=== PATIENT | female | born 1970 | race Caucasian/White ===

== ENCOUNTER 2022-06-05 15:09 | Inpatient (IN) ==
[2022-06-05] MEDS ORDERED: DUONEB NEB STA ×2 (15:18→15:55)
[2022-06-05] MEDS ORDERED: SOLU-MEDROL 125 MG IM STA (15:18)
[2022-06-05] MEDS ORDERED: DUONEB NEB ONE (15:21)
--- NOTE | 2022-06-05 15:43 | DI ---
EXAM: CHEST X-RAY ONE VIEW. HISTORY: Dyspnea. COMPARISON: 03/18/2022 chest x-ray. FINDINGS: There are stable linear and patchy markings in the right mid to lower lung with blunting o f both costophrenic angles, right greater than left. The cardiac silhouette is enlarged. There is mild pulmonary edema and no pneumothorax. No change in the right-sided port or osseous structures. IMPRESSION: Stable right mid to lower lung atelectasis and/or pneumonia with small bilateral pleural effusions, right greater than left. Stable cardiomegaly and interstitial edema.
--- NOTE | 2022-06-05 15:43 | ED.PDOC ---
General ED Provider: Dr. MILADY DAVEY MD Chief Complaint: Shortness of Air Stated Complaint: Patient presents with increasing dyspnea and wheezing over the past 2 days. She is on home oxygen. Patient has a chronic cough that is nonproductive. She did have fever to 100.2 this morning. Patient does have chronic chest pain that is related to her cough. She is on home oxygen at 3L/min [place]. Patient has noted increasing peripheral edema and also has orthopnea. Time Seen by Provider: 06/05/22 15:42 Mode of Arrival: Wheelchair Information Source: Patient Primary Care Provider: ODALIS BECKFORD MD Nursing and Triage Documentation Reviewed and Agree: Yes Does patient meet sepsis criteria?: No System Inflammatory Response Syndrome: Not Applicable Sepsis Protocol: For patient's 13 years and over: Temp is 96.8 and below OR 101 and greater Pulse >90 BPM Resp >20/minute Acutely Altered Mental Status Are patient's symptoms suggestive of a new infection, such as: -Pneumonia -Skin, Soft Tissue -Endocarditis -UTI -Bone, Joint Infection -Implantable Device -Acute Abdominal Infection -Wound Infection -Meningitis -Blood Stream Catheter Infection -Unknown Review of Systems Review Of Systems Constitutional: Reports Fever Eyes: Reports No symptoms Ears, Nose, Mouth, Throat: Reports No symptoms Respiratory: Reports Cough, Orthopnea, Short of air and Wheezing Cardiac: Reports Chest pain and Edema GI: Reports No symptoms : Reports No symptoms Musculoskeletal: Reports No symptoms Skin: Reports No symptoms Neurological: Reports No symptoms Endocrine: Reports No symptoms Hematologic/Lymphatic: Reports No symptoms All Other Systems: Reviewed and Negative [facility] Medical History (Updated 06/05/22 @ 17:38 by MILADY DAVEY MD) Arthritis, rheumatoid Bone marrow disease COPD exacerbation Diastolic heart failure Encounter for insertion of venous access port Enlarged liver History of intussusception Respiratory distress Sarcoidosis Spleen enlarged Uveitic glaucoma Family History Mother Hypertension Diabetes FATHER Cancer Social History Smoking and tobacco status: Former smoker Tobacco: How many years used: 37 Quit status: not considering quitting Second hand smoke exposure: No Alcohol intake: never Counseling given: No Counseling provided: none Substance use type: does not use Counseling given: No Counseling provided: none Janice/judaism: NONE Special janice needs: No Agree to transfusion: Yes Adopted: No Caregiver/support person: No Foster care: No Household members: spouse and family Housing: house Marital status: M Lives independently: Yes Daycare: no daycare Number of children: 5 Number of grandchildren: 7 Highest education level completed: 10th grade Financial difficulty paying for basics: hard service: No assisted: No Current occupational status: disabled Current occupational exposures/hazards: No Pets and animals: Yes (cats, dog) History of recent travel: No Do you think of yourself as: straight/heterosexual Current gender identity: female Seatbelt use: always Drives intoxicated or rides with intoxicated 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 ) Ill-appearing: Moderate Pain Distress: None Eyes: Reports Conjunctiva clear ENT: Reports Nose normal and Oropharynx normal Neck: Supple Respiratory: Reports Airway patent, Breath sounds equal, Breath sounds diminished and Wheezes (bilateral throughout) Cardiovascular: Reports RRR, No rub, No murmur and Other (Moderate pitting edema bilaterally to the knees.) GI/: Reports Soft, Nontender, No masses, Bowel sounds normal and No Organomegaly Musculoskeletal: Reports ROM intact Skin: Reports Warm, Dry and Normal color Neurological: Reports Alert and Oriented Psychiatric: Reports Affect appropriate and Mood appropriate Interpretation Radiology Interpretation Radiology Interpretation By: Radiologist Exam Interpreted: Portable CXR (mild pulmonary edema, small bilateral pleural effusions, right sided infiltrate/atelectasis stable from 03/18/22) EKG Interpretation Time of EKG #1: 15:34 Rate: Normal Rhythm: Sinus Ectopy: None [place]: Right ST Segment: Normal Interpretation: normal sinus rhythm Critical Care Note Critical Care Note Total Critical Care Time (mins): 0 Course Course Hematology/Chemistry: 06/05/22 16:12 06/05/22 16:12 Orders, Labs, Meds: Lab Review 06/05/22 06/05/22 06/05/22 16:12 16:12 16:12 WBC 3.02 L RBC 3.14 L Hgb 8.6 L Hct 29.5 L MCV 93.9 MCH 27.4 MCHC 29.2 L RDW Coeff of Georgina 18.4 H Plt Count 145 Immature Gran % (Auto) 0.0 Neut % (Auto) 80.2 H Lymph % (Auto) 8.9 L [place] % (Auto) 8.9 Eos % (Auto) 1.7 Baso % (Auto) 0.3 Neut # (Auto) 2.4 Lymph # (Auto) 0.3 L [place] # (Auto) 0.3 L Eos # (Auto) 0.1 Baso # (Auto) 0.0 Immature Gran # (Auto) 0.0 Hypochromasia 3+ Anisocytosis 3+ Microcytosis 2+ Stomatocytes 1+ Sodium 135.9 Potassium 3.56 Chloride 90.1 L Carbon Dioxide 48.0 H* Anion Gap 1.36 BUN 18.5 H Creatinine 1.09 Estimated GFR (MDRD) 53.00 BUN/Creatinine Ratio 16.97 Glucose 94.5 Calcium 8.83 Total Bilirubin 0.46 AST 17.6 ALT 6.2 Alkaline Phosphatase 71.6 Troponin I < 0.012 NT-Pro-B Natriuret Pep 1090 H Total Protein 6.63 Albumin 3.80 Globulin 2.83 Albumin/Globulin Ratio 1.34 Influ A Molecular Assay Influ B Molecular Assay SARS CoV-2 RNA Rapid PAUL 06/05/22 06/05/22 16:45 16:45 WBC RBC Hgb Hct MCV MCH MCHC RDW Coeff of Georgina Plt Count Immature Gran % (Auto) Neut % (Auto) Lymph % (Auto) [place] % (Auto) Eos % (Auto) Baso % (Auto) Neut # (Auto) Lymph # (Auto) [place] # (Auto) Eos # (Auto) Baso # (Auto) Immature Gran # (Auto) Hypochromasia Anisocytosis Microcytosis Stomatocytes Sodium Potassium Chloride Carbon Dioxide Anion Gap BUN Creatinine Estimated GFR (MDRD) BUN/Creatinine Ratio Glucose Calcium Total Bilirubin AST ALT Alkaline Phosphatase Troponin I NT-Pro-B Natriuret Pep Total Protein Albumin Globulin Albumin/Globulin Ratio Influ A Molecular Assay Negative by naat Influ B Molecular Assay Negative by naat SARS CoV-2 RNA Rapid PAUL Negative Orders Category Date Time Status EKG-(ED ONLY) Stat CARDIO 06/05/22 15:34 Completed NEBULIZER TREATMENT Stat CARDIO 06/05/22 15:18 Completed NEBULIZER TREATMENT Stat CARDIO 06/05/22 15:55 Completed CBC W/ AUTO DIFF Stat LAB 06/05/22 16:12 Completed CMP [COMPREHENSIVE METABOLIC PANEL] Stat LAB 06/05/22 16:12 Completed COVID [SARS COV-2 RNA RAPID PAUL] Stat LAB 06/05/22 16:45 Completed FLU A/B MOLECULAR Stat LAB 06/05/22 16:45 Completed NT-PROBNP(ED) Stat LAB 06/05/22 16:12 Completed RBC MORPHOLOGY Stat LAB 06/05/22 16:12 Completed TROPONIN I Stat LAB 06/05/22 16:12 Completed Furosemide [Lasix] MEDS 06/05/22 16:00 Discontinued 60 mg IVP ONCE STA Ipratropium/Albuterol Neb [Duoneb] MEDS 06/05/22 15:21 Discontinued 3 ml NEB .STK-MED ONE Ipratropium/Albuterol Neb [Duoneb] MEDS 06/05/22 15:18 Discontinued 3 ml NEB ONCE STA Ipratropium/Albuterol Neb [Duoneb] MEDS 06/05/22 15:55 Discontinued 3 ml NEB ONCE STA Ketorolac Tromethamine [Toradol] MEDS 06/05/22 15:55 Discontinued 15 mg IVP ONCE STA Methylprednisolone Sod Succ/Pf [Solu-Medrol 125 mg] MEDS 06/05/22 16:31 Discontinued 125 mg IVP ONCE STA Morphine Sulfate [Morphine 4 mg/ml Syringe] MEDS 06/05/22 16:40 Discontinued 4 mg IVP ONCE STA CXR [CHEST, 1V AP ONLY] Stat RADS 06/05/22 15:18 Completed Medications Discontinued Medications Generic Name Dose Route Start Last Admin Trade Name Freq PRN Reason Stop Dose Admin Albuterol/Ipratropium 3 ml 06/05/22 15:18 06/05/22 15:30 Ipratropium/Albuterol Vial.Neb NEB 06/05/22 15:19 3 ml ONCE STA Administration Albuterol/Ipratropium 3 ml 06/05/22 15:55 06/05/22 16:34 Ipratropium/Albuterol Vial.Neb NEB 06/05/22 15:56 3 ml ONCE STA Administration Furosemide 60 mg 06/05/22 16:00 06/05/22 16:50 Furosemide Inj 100 Mg/10 Ml Vial IVP 06/05/22 16:01 60 mg ONCE STA Administration Ketorolac Tromethamine 15 mg 06/05/22 15:55 06/05/22 17:13 Ketorolac Tromethamine 15 Mg/Ml Vial IVP 06/05/22 15:56 Not Given ONCE STA Methylprednisolone Sodium Succinate 125 mg 06/05/22 16:31 06/05/22 16:52 Methylprednisolone Sod Succ/Pf 125 Mg/2 Ml Vial IVP 06/05/22 16:32 125 mg ONCE STA Administration Morphine Sulfate 4 mg 06/05/22 16:40 06/05/22 16:45 Morphine Sulfate 4 Mg/Ml Syringe IVP 06/05/22 16:41 4 mg ONCE STA Administration Vital Signs: Temp Pulse Resp BP Pulse Ox 06/05/22 15:17 97.8 F 91 32 H 151/88 H 93 L Discharge Plan Discharge Patient Disposition: ADMITTED INPATIENT Discharge Problem: Acute exacerbation of congestive heart failure, Chronic respiratory failure with hypoxia, on home oxygen therapy Did you review [place]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
[2022-06-05] MEDS ORDERED: TORADOL IVP STA (15:55)
[2022-06-05] MEDS ORDERED: LASIX IVP STA (16:00)
[2022-06-05 16:29] LABS: ALANINE AMINOTRANSFERASE 6.2 U/L (0-35); ALKALINE PHOSPHATASE 71.6 U/L (38-126); ASPARTATE AMINO TRANSFERASE 17.6 U/L (14-36); BILIRUBIN,TOTAL 0.46 mg/dL (0.2-1.3); BLOOD UREA NITROGEN 18.5 mg/dL (7-17); CALCIUM 8.83 mg/dL (8.4-10.2); CHLORIDE 90.1 mmol/L (98-107); CREATININE 1.09 mg/dL (0.60-1.30); GLUCOSE 94.5 mg/dL (74-106); POTASSIUM 3.56 mmol/L (3.5-5.1); SODIUM 135.9 mmol/L (134.5-145); TOTAL PROTEIN 6.63 g/dL (6.3-8.2)
[2022-06-05] MEDS ORDERED: SOLU-MEDROL 125 MG IVP STA (16:31)
[2022-06-05] MEDS ORDERED: MORPHINE 4 MG/ML SYRINGE IVP STA (16:40)
[2022-06-05 16:43] LABS: TROPONIN I < 0.012 ng/ml (0.0000-0.120)
[2022-06-05 17:03] LABS: MOLECULAR FLU A NEGATIVE BY NAAT (NEGATIVE); MOLECULAR FLU B NEGATIVE BY NAAT (NEGATIVE)
[2022-06-05 17:11] LABS: BASOPHILS % (AUTO) 0.3 % (0.0-3.0); EOSINOPHILS # (AUTO) 0.1 K/ul (0.0-0.7); EOSINOPHILS % (AUTO) 1.7 % (0.0-7.0); HEMATOCRIT 29.5 % (37.0-47.0); HEMOGLOBIN 8.6 g/dl (12.0-16.0); LYMPHOCYTES # (AUTO) 0.3 K/uL (0.60-3.4); LYMPHOCYTES % (AUTO) 8.9 (10.0-50.0); MEAN CORPUSCULAR HEMOGLOBIN 27.4 pg (27.0-31.0); MEAN CORPUSCULAR HGB CONC 29.2 (31.8-35.4); MEAN CORPUSCULAR VOLUME 93.9 fl (81.0-99.0); MONOCYTES # (AUTO) 0.3 K/uL (0.4-2.0); MONOCYTES % (AUTO) 8.9 (0-10); NEUTROPHILS # (AUTO) 2.4 K/ul (2.0-6.9); NEUTROPHILS % (AUTO) 80.2 % (42.2-75.2); PLATELET COUNT 145 10^3/uL (140-440); RDW COEFFICIENT OF VARIATION 18.4 % (11.6-14.8); RED BLOOD COUNT 3.14 10^6/ul (4.20-5.40); WHITE BLOOD COUNT 3.02 K/ul (4.6-10.2)
[2022-06-05 17:20] LABS: SARS COV-2 RNA RAPID NAAT NEGATIVE (NEGATIVE)
[2022-06-05 17:21] LABS: ANISOCYTOSIS 3+ (NOT PRESENT); HYPOCHROMASIA 3+ (NOT PRESENT)
[2022-06-05 17:22] LABS: MICROCYTOSIS 2+ (NOT PRESENT); STOMATOCYTES 1+ (NOT PRESENT)
[2022-06-05] MEDS ORDERED: PERCOCET 5-325 PO PRN (17:43)
[2022-06-05] MEDS ORDERED: SOLU-MEDROL 125 MG IVP SCH (18:00)
[2022-06-05] MEDS ORDERED: SEROQUEL PO SCH (18:00)
--- NOTE | 2022-06-05 18:04 | PCM ---
Chief Complaint Chief Complaint: dyspnea History of Present Illness History of Present Illness: Patient presented with worsening dyspnea for 2 days. She also complained of fever to 100.2, cough, peripheral edema, orthopnea, wheezing. She was found to have acute exacerbation of CHF and chronic respiratory failure with hypoxia. She is on home oxygen at 2L/min [place]. Review of Systems Constitutional: Reports Fever Eyes: Reports No symptoms Ears: Reports No symptoms Nose: Reports No symptoms Throat: Reports No symptoms Mouth: Reports No symptoms Respiratory: Reports Cough, Shortness of air and Wheeze Cardiovascular: Reports Orthopnea and Edema Gastrointestinal: Reports No symptoms Genitourinary: Reports No symptoms Neurological: Reports No symptoms Musculoskeletal: Reports No symptoms Skin: Reports No symptoms Immunology: Reports No symptoms Hematology: Reports No symptoms Endocrine: Reports No symptoms Psychiatric: Reports No symptoms Habits: Reports Tobacco use Allergies Allergies Allergy/AdvReac Type Severity Reaction Status Date / Time Penicillins AdvReac Rash Verified 06/05/22 15:36 prednisone AdvReac Dizziness Verified 06/05/22 15:36 Sulfa (Sulfonamide AdvReac Rash Verified 06/05/22 15:36 Antibiotics) [facility] Medical History (Updated 06/05/22 @ 17:38 by MILADY DAVEY MD) Arthritis, rheumatoid Bone marrow disease COPD exacerbation Diastolic heart failure Encounter for insertion of venous access port Enlarged liver History of intussusception Respiratory distress Sarcoidosis Spleen enlarged Uveitic glaucoma Surgical History Delivery by section H/O: hysterectomy History of esophageal hernia repair History of inguinal hernia repair Hx of cholecystectomy S/P repair of ligament of ankle Family History Mother Hypertension Diabetes FATHER Cancer Social History Smoking and tobacco status: Former smoker Tobacco: How many years used: 37 Quit status: not considering quitting Second hand smoke exposure: No Alcohol intake: never Counseling given: No Counseling provided: none Substance use type: does not use Counseling given: No Counseling provided: none Janice/anglican: NONE Special janice needs: No Agree to transfusion: Yes Adopted: No Caregiver/support person: No Foster care: No Household members: spouse and family Housing: house Marital status: M Lives independently: Yes Daycare: no daycare Number of children: 5 Number of grandchildren: 7 Highest education level completed: 10th grade Financial difficulty paying for basics: hard service: No custodial: No Current occupational status: disabled Current occupational exposures/hazards: No Pets and animals: Yes (cats, dog) History of recent travel: No Do you think of yourself as: straight/heterosexual Current gender identity: female Seatbelt use: always Drives intoxicated or rides with intoxicated tank 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 PO QDAY EMRE Duloxetine HCl 0 mg 06/05/22 18:00 Duloxetine Hcl 30 Mg Capsule. PO .COMPLEX EMRE Metoprolol Succinate 25 mg 06/05/22 18:00 Metoprolol Succinate 25 Mg Tab.Er.24h PO QDAY EMRE Oxycodone/Acetaminophen 1 tab 06/05/22 17:43 Oxycodone/Acetaminophen 5/325 Mg Tablet PO Q4HR PRN MODERATE PAIN Pantoprazole Sodium 40 mg 06/05/22 18:00 Pantoprazole Sodium 40 Mg Tablet. PO QDAY EMRE Quetiapine Fumarate 600 mg 06/05/22 18:00 Quetiapine Fumarate 100 Mg Tablet PO DAILY [facility] Body Composition Height: 5 ft 2 in Weight: 69.4 kg Body Mass Index (BMI): 28.0 Vital Signs Temperature: 97.8 F Pulse Rate: 91 Respiratory Rate: 32 Blood Pressure: 151/88 O2 Sat by Pulse Oximetry: 93 Physical Examination Appearance: Reports Ill-appearing, Obese and Other (Patient is both acutely and chronically ill appearing. She is moderately tachypneic. ) Ill-appearing: Moderate Pain Distress: Mild Eyes: Reports Conjunctiva clear ENT: Reports Nose normal and Oropharynx normal Neck: Supple Respiratory: Reports Airway patent, Breath sounds equal, Breath sounds diminished and Wheezes Cardiovascular: Reports RRR, No rub, No murmur and Other (Moderate pitting edema bilateral LEs) GI/: Reports Soft, Nontender, No masses and Bowel sounds normal Musculoskeletal: Reports ROM intact Skin: Reports Warm, Dry and Normal color Neurological: Reports Alert and Oriented Psychiatric: Reports Affect appropriate, Mood appropriate and Anxious Lab/Tests/Diagnostic Imaging Lab/Tests/Diagnostic Imaging: Lab Review 06/05/22 06/05/22 06/05/22 16:12 16:12 16:12 WBC 3.02 L RBC 3.14 L Hgb 8.6 L Hct 29.5 L MCV 93.9 MCH 27.4 MCHC 29.2 L RDW Coeff of Georgina 18.4 H Plt Count 145 Immature Gran % (Auto) 0.0 Neut % (Auto) 80.2 H Lymph % (Auto) 8.9 L [place] % (Auto) 8.9 Eos % (Auto) 1.7 Baso % (Auto) 0.3 Neut # (Auto) 2.4 Lymph # (Auto) 0.3 L [place] # (Auto) 0.3 L Eos # (Auto) 0.1 Baso # (Auto) 0.0 Immature Gran # (Auto) 0.0 Hypochromasia 3+ Anisocytosis 3+ Microcytosis 2+ Stomatocytes 1+ Sodium 135.9 Potassium 3.56 Chloride 90.1 L Carbon Dioxide 48.0 H* Anion Gap 1.36 BUN 18.5 H Creatinine 1.09 Estimated GFR (MDRD) 53.00 BUN/Creatinine Ratio 16.97 Glucose 94.5 Calcium 8.83 Total Bilirubin 0.46 AST 17.6 ALT 6.2 Alkaline Phosphatase 71.6 Troponin I < 0.012 NT-Pro-B Natriuret Pep 1090 H Total Protein 6.63 Albumin 3.80 Globulin 2.83 Albumin/Globulin Ratio 1.34 Influ A Molecular Assay Influ B Molecular Assay SARS CoV-2 RNA Rapid PAUL 06/05/22 06/05/22 16:45 16:45 WBC RBC Hgb Hct MCV MCH MCHC RDW Coeff of Georgina Plt Count Immature Gran % (Auto) Neut % (Auto) Lymph % (Auto) [place] % (Auto) Eos % (Auto) Baso % (Auto) Neut # (Auto) Lymph # (Auto) [place] # (Auto) Eos # (Auto) Baso # (Auto) Immature Gran # (Auto) Hypochromasia Anisocytosis Microcytosis Stomatocytes Sodium Potassium Chloride Carbon Dioxide Anion Gap BUN Creatinine Estimated GFR (MDRD) BUN/Creatinine Ratio Glucose Calcium Total Bilirubin AST ALT Alkaline Phosphatase Troponin I NT-Pro-B Natriuret Pep Total Protein Albumin Globulin Albumin/Globulin Ratio Influ A Molecular Assay Negative by naat Influ B Molecular Assay Negative by naat SARS CoV-2 RNA Rapid PAUL Negative Orders Category Date Time Status ADMIT PATIENT INPATIENT .TO [facility] (MONITORED BED) ADMISSION 06/05/22 17:45 Ordered EKG-(ED ONLY) Stat CARDIO 06/05/22 15:34 Completed NEBULIZER TREATMENT Routine CARDIO 06/05/22 17:51 Ordered NEBULIZER TREATMENT Stat CARDIO 06/05/22 15:18 Completed NEBULIZER TREATMENT Stat CARDIO 06/05/22 15:55 Completed OXYGEN Routine CARDIO 06/05/22 17:48 Ordered ACTIVITY .Up With Assistance CARE 06/05/22 17:45 Ordered INTAKE & OUTPUT Q8HR CARE 06/05/22 17:45 Ordered IP: INSERT SALINE LOCK ONCE CARE 06/05/22 17:45 Ordered TELEMETRY MONITORING TELE CARE 06/05/22 17:45 Ordered VITAL SIGNS Q8HR CARE 06/05/22 17:45 Ordered REGULAR DIET DIETARY 06/05/22 Dinner Ordered CBC W/ AUTO DIFF DAILY@0600 LAB 06/06/22 06:00 Ordered CBC W/ AUTO DIFF DAILY@0600 LAB 06/07/22 06:00 Ordered CBC W/ AUTO DIFF Stat LAB 06/05/22 16:12 Completed CMP [COMPREHENSIVE METABOLIC PANEL] Stat LAB 06/05/22 16:12 Completed COMPREHENSIVE METABOLIC PANEL DAILY@0600 LAB 06/06/22 06:00 Ordered COMPREHENSIVE METABOLIC PANEL DAILY@0600 LAB 06/07/22 06:00 Ordered COVID [SARS COV-2 RNA RAPID PAUL] Stat LAB 06/05/22 16:45 Completed FLU A/B MOLECULAR Stat LAB 06/05/22 16:45 Completed NT-PROBNP(ED) Stat LAB 06/05/22 16:12 Completed RBC MORPHOLOGY Stat LAB 06/05/22 16:12 Completed TROPONIN I Stat LAB 06/05/22 16:12 Completed Aspirin [Aspirin EC] MEDS 06/05/22 18:00 Ordered 81 mg PO QDAY Duloxetine HCl [Cymbalta] MEDS 06/05/22 18:00 Ordered See Dose Instructions PO .COMPLEX Furosemide [Lasix] MEDS 06/06/22 07:00 Once 60 mg IVP ONCE ONE Furosemide [Lasix] MEDS 06/05/22 16:00 Discontinued 60 mg IVP ONCE STA Ipratropium/Albuterol Neb [Duoneb] MEDS 06/05/22 15:21 Discontinued 3 ml NEB .STK-MED ONE Ipratropium/Albuterol Neb [Duoneb] MEDS 06/05/22 15:18 Discontinued 3 ml NEB ONCE STA Ipratropium/Albuterol Neb [Duoneb] MEDS 06/05/22 15:55 Discontinued 3 ml NEB ONCE STA Ipratropium/Albuterol Neb [Duoneb] MEDS 06/05/22 18:00 Ordered 3 ml NEB RTQ6H Ketorolac Tromethamine [Toradol] MEDS 06/05/22 15:55 Discontinued 15 mg IVP ONCE STA Methylprednisolone Sod Succ/Pf [Solu-Medrol 125 mg] MEDS 06/05/22 16:31 Discontinued 125 mg IVP ONCE STA Methylprednisolone Sod Succ/Pf [Solu-Medrol 125 mg] MEDS 06/05/22 18:00 Ordered 125 mg IVP Q8H Metoprolol Succinate [Toprol Xl] MEDS 06/05/22 18:00 Ordered 25 mg PO QDAY Morphine Sulfate [Morphine 4 mg/ml Syringe] MEDS 06/05/22 16:40 Discontinued 4 mg IVP ONCE STA Morphine Sulfate [Morphine 4 mg/ml Syringe] MEDS 06/05/22 17:50 Ordered 4 mg IVP Q4H PRN Oxycodone-Acetaminophen 5-325 [Percocet 5-325] MEDS 06/05/22 17:43 Ordered 1 tab PO Q4HR PRN Pantoprazole Sodium [Protonix] MEDS 06/05/22 18:00 Ordered 40 mg PO QDAY Quetiapine Fumarate [Seroquel] MEDS 06/05/22 18:00 Ordered 600 mg PO DAILY RESUSCITATION STATUS Routine OTHERS 06/05/22 17:45 Ordered CXR [CHEST, 1V AP ONLY] Stat RADS 06/05/22 15:18 Completed Medications Generic Name Dose Route Start Last Admin Trade Name Freq PRN Reason Stop Dose Admin Aspirin 81 mg 06/05/22 18:00 Aspirin 81 Mg Tablet. PO QDAY EMRE Duloxetine HCl 0 mg 06/05/22 18:00 Duloxetine Hcl 30 Mg Capsule. PO .COMPLEX EMRE Metoprolol Succinate 25 mg 06/05/22 18:00 Metoprolol Succinate 25 Mg Tab.Er.24h PO QDAY EMRE Oxycodone/Acetaminophen 1 tab 06/05/22 17:43 Oxycodone/Acetaminophen 5/325 Mg Tablet PO Q4HR PRN MODERATE PAIN Pantoprazole Sodium 40 mg 06/05/22 18:00 Pantoprazole Sodium 40 Mg Tablet. PO QDAY EMRE Quetiapine Fumarate 600 mg 06/05/22 18:00 Quetiapine Fumarate 100 Mg Tablet PO DAILY EMRE Discontinued Medications Generic Name Dose Route Start Last Admin Trade Name Freq PRN Reason Stop Dose Admin Albuterol/Ipratropium 3 ml 06/05/22 15:18 06/05/22 15:30 Ipratropium/Albuterol Vial.[facility]aron [facility] 06/05/22 15:19 3 ml ONCE STA Administration Albuterol/Ipratropium 3 ml 06/05/22 15:55 06/05/22 16:34 Ipratropium/Albuterol Vial.Aaron [facility] 06/05/22 15:56 3 ml ONCE STA Administration Furosemide 60 mg 06/05/22 16:00 06/05/22 16:50 Furosemide Inj 100 Mg/10 Ml Vial IVP 06/05/22 16:01 60 mg ONCE STA Administration Ketorolac Tromethamine 15 mg 06/05/22 15:55 06/05/22 17:13 Ketorolac Tromethamine 15 Mg/Ml Vial IVP 06/05/22 15:56 Not Given ONCE STA Methylprednisolone Sodium Succinate 125 mg 06/05/22 16:31 06/05/22 16:52 Methylprednisolone Sod Succ/Pf 125 Mg/2 Ml Vial IVP 06/05/22 16:32 125 mg ONCE STA Administration Morphine Sulfate 4 mg 06/05/22 16:40 06/05/22 16:45 Morphine Sulfate 4 Mg/Ml Syringe IVP 06/05/22 16:41 4 mg ONCE STA Administration Assessment (1) Acute exacerbation of congestive heart failure: Status: Acute Code(s): I50.9 - Heart failure, unspecified SNOMED Code(s): 512816209 (2) Chronic respiratory failure with hypoxia, on home oxygen therapy: Status: Acute Code(s): J96.11 - Chronic respiratory failure with hypoxia; Z99.81 - Dependence on supplemental oxygen SNOMED Code(s): 269075847 Plan Plan: Patient will receive IV lasix, duonebs, IV solumedrol and supplemental oxygen.
[2022-06-05 18:28] VITALS: BMI 26.9
[2022-06-05] MEDS: DUONEB NEB SCH ×2 (18:46→23:03)
[2022-06-05] MEDS: CYMBALTA PO SCH (20:58)
[2022-06-05] MEDS: SOLU-MEDROL 125 MG IVP SCH (20:58)
[2022-06-05] MEDS: MORPHINE 4 MG/ML SYRINGE IVP PRN (20:58)
[2022-06-06] MEDS: DUONEB NEB SCH ×2 (04:45→12:59)
[2022-06-06] MEDS: SOLU-MEDROL 125 MG IVP SCH (05:03)
[2022-06-06 05:44] LABS: HEMATOCRIT 32.4 % (37.0-47.0); HEMOGLOBIN 9.5 g/dl (12.0-16.0); IMMATURE GRANULOCYTE % (AUTO) 0.5 % (0.0-5.0); LYMPHOCYTES # (AUTO) 0.1 K/uL (0.60-3.4); LYMPHOCYTES % (AUTO) 2.7 (10.0-50.0); MEAN CORPUSCULAR HEMOGLOBIN 27.3 pg (27.0-31.0); MEAN CORPUSCULAR HGB CONC 29.3 (31.8-35.4); MEAN CORPUSCULAR VOLUME 93.1 fl (81.0-99.0); MONOCYTES % (AUTO) 1.1 (0-10); NEUTROPHILS # (AUTO) 1.8 K/ul (2.0-6.9); NEUTROPHILS % (AUTO) 95.7 % (42.2-75.2); PLATELET COUNT 136 10^3/uL (140-440); RDW COEFFICIENT OF VARIATION 18.3 % (11.6-14.8); RED BLOOD COUNT 3.48 10^6/ul (4.20-5.40)
[2022-06-06 05:52] LABS: WHITE BLOOD COUNT 1.85 K/ul (4.6-10.2)
[2022-06-06 05:58] LABS: ALANINE AMINOTRANSFERASE 10.1 U/L (0-35); ALBUMIN 4.28 g/dL (3.5-5.0); ALKALINE PHOSPHATASE 74.2 U/L (38-126); ASPARTATE AMINO TRANSFERASE 18.3 U/L (14-36); BILIRUBIN,TOTAL 0.45 mg/dL (0.2-1.3); BLOOD UREA NITROGEN 22.3 mg/dL (7-17); CALCIUM 9.2 mg/dL (8.4-10.2); CREATININE 0.88 mg/dL (0.60-1.30); GLUCOSE 234.8 mg/dL (74-106); POTASSIUM 3.58 mmol/L (3.5-5.1); SODIUM 139.5 mmol/L (134.5-145); TOTAL PROTEIN 7.17 g/dL (6.3-8.2)
[2022-06-06 06:06] LABS: CARBON DIOXIDE 47.1 mmol/L (22-30.0)
[2022-06-06] MEDS: MORPHINE 4 MG/ML SYRINGE IVP PRN (06:58)
[2022-06-06 07:00] LABS: CREATINE KINASE 21.2 U/L (30-135)
[2022-06-06] MEDS ORDERED: LASIX IVP ONE (07:00)
[2022-06-06 07:18] LABS: TROPONIN I < 0.012 ng/ml (0.0000-0.120)
[2022-06-06] MEDS ORDERED: ASPIRIN EC PO SCH (08:30)
[2022-06-06] MEDS ORDERED: HUMULIN R SUBCUT PRN (08:34)
--- NOTE | 2022-06-06 08:42 | PCM.PROG ---
Date Seen by Provider: 06/06/22 Time Seen by Provider: 08:38 Subjective: she says she is feeling better---no nursing staff concerns Objective: Vitals: T=97.3 F, P=93, R=20, LH=649/68, SPO2=89 HEENT: [] Neck: [supple] Lungs: [scattered rhonchi] CVS: [rrr] Abdomen: [soft nt bs] Extremities: [] Neurological: [intact] Skin: [] Lab/Tests/Diagnostic Imaging: [labs noted] (1) Acute exacerbation of congestive heart failure: Status: Acute Code(s): I50.9 - Heart failure, unspecified SNOMED Code(s): 625503992 (2) Chronic respiratory failure with hypoxia, on home oxygen therapy: Status: Acute Code(s): J96.11 - Chronic respiratory failure with hypoxia; Z99.81 - Dependence on supplemental oxygen SNOMED Code(s): 652788257 (3) Leukopenia: Status: Acute Code(s): D72.819 - Decreased white blood cell count, unspecified SNOMED Code(s): 38727553 Plan: i think in terms of her leukopenia and fever will need to cover with antbx---will check with pharmacy---follow labs---she is agreeable to abg this am---will check cxr in am--
[2022-06-06 08:56] LABS: ABG O2 HGB 87.9 % (95-100); BEecf 28.5 (-2.0-3.0); COHb 3.3 (0.5-1.5); HCO3 53.3 (21-28); MetHb 0.9 (0-1.5); TCO2 55.9 (19-24); sO2 89.2 % (94-98); tHb 9.8 g/dl (11.7-17.4)
[2022-06-06] MEDS ORDERED: DOXY-100 100 MG in SODIUM CHLORIDE 100ML 100 ML IV SCH (09:00)
[2022-06-06] MEDS ORDERED: TOPROL XL PO SCH (09:00)
[2022-06-06] MEDS ORDERED: PROTONIX PO SCH (09:00)
[2022-06-06] MEDS ORDERED: MAXIPIME 2 GM/50 ML D5W 2 GM/50 ML BAG IV SCH (09:30)
[2022-06-06] MEDS: CYMBALTA PO SCH (09:41)
[2022-06-06 10:15] VITALS: BP 111/70; TEMP 98.5
--- NOTE | 2022-06-06 11:05 | PCM.DC ---
Final Diagnosis: acute resp failure with hypoxia and hypercarbia Physical Exam Appearance: Well-appearing Ill-appearing: None Pain Distress: None Eyes: KYREE, EOMI and Conjunctiva clear ENT: Ears normal, Nose normal and Oropharynx normal Neck: Supple Respiratory: Airway patent, Crackles and Rhonchi Cardiovascular: RRR, Pulses normal and No rub GI/: Soft, Nontender and No masses Musculoskeletal: Normal strength, ROM intact, No edema and No calf tenderness Skin: Warm, Dry, Normal color and Pale Neurological: Sensation intact, Motor intact, Reflexes intact, Cranial nerves intact, Alert and Oriented Psychiatric: Affect appropriate and Mood appropriate (1) Acute exacerbation of congestive heart failure: Status: Acute Code(s): I50.9 - Heart failure, unspecified SNOMED Code(s): 343327243 (2) Chronic respiratory failure with hypoxia, on home oxygen therapy: Status: Acute Code(s): J96.11 - Chronic respiratory failure with hypoxia; Z99.81 - Dependence on supplemental oxygen SNOMED Code(s): 057226277 (3) Leukopenia: Status: Acute Code(s): D72.819 - Decreased white blood cell count, unspecified SNOMED Code(s): 29769919 Reason for Hospitalization: hypoxia Prognosis/Condition at Discharge: fair Follow-ups: with clinic Discharge Disposition: Acute Care Facility Hospital Course: the patient was admitted for diuresis, despite this and oxygen she continued with air hunger and worsening hypercarbia and did not tolerate vapotherm or bipap---at this time arrangements are made for her to be intubated by theatrical variety agent transferred to [place]. I spoke to dr Negro and he agreed to accept in transfer to the unit. Plan: transfer to [facility] by ems
[2022-06-06] MEDS ORDERED: SUBLIMAZE ONE (11:09)
[2022-06-06] MEDS ORDERED: VERSED ONE (11:09)
[2022-06-06] MEDS ORDERED: ZEMURON ONE (11:10)
[2022-06-06] MEDS ORDERED: VERSED IVP ONE ×2 (11:20→12:11)
[2022-06-06] MEDS ORDERED: SUBLIMAZE IVP ONE ×2 (11:21→12:22)
[2022-06-06] MEDS ORDERED: ANECTINE IVP ONE (11:21)
[2022-06-06] MEDS ORDERED: DIPRIVAN 20 ML VIAL IVP ONE ×2 (11:21→12:25)
[2022-06-06] MEDS ORDERED: ZEMURON IVP ONE ×2 (11:28→12:24)
[2022-06-06 11:34] LABS: ABG O2 HGB 96.2 % (95-100); BEecf 27.7 (-2.0-3.0); COHb 2.7 (0.5-1.5); HCO3 50.6 (21-28); MetHb 0.9 (0-1.5); TCO2 52.5 (19-24); tHb 9.7 g/dl (11.7-17.4)
--- NOTE | 2022-06-06 12:08 | ED.PDOC ---
Procedures - Intubation Indication: Present: Respiratory Insufficiency Time of Intubation: 11:20 Medications: Yes: Succinylcholine (anectine 80mg @ 1121), Versed (versed 2.5mg @1120), Propofol (propofol 100mg@1121), Other ( fentanyl 50 ug @ 1121 , zemuron 30mg @ 1128) Type of Tube Used: Endotracheal Tube Size: 7 Cricoid Pressure Used: No Tube Harrison Used: Yes Position of Tube at Lip: 20 Number of Attempts: 1 Suction Used: No Glidescope Used: No CO2 Detector Used: Yes Lung Sounds Equal Bilaterally: Yes Tube Inserted By: Marvin Wren CRNA Conscious Sedation - Pre-op Assessment Weight: 146 lb Surgical History: Left ankle X2, right ankle x1, gallbladder removal, hysterectomy. 4 ports placed. hysterectemy 1999 - Medical History Past Medical History: CHF, COPD, Other Other History: stage 4 sarcoidosis, endometriosis - Physical Exam Heart Rate/Rhythm: Regular Rhythm
[2022-06-06 12:21] LABS: ABG PH 7.52 (7.35-7.45)
--- NOTE | 2022-06-06 12:35 | DI ---
EXAM: CHEST ONE-VIEW SUPINE PORTABLE HISTORY: Intubated COMPARISON: 06/05/2022 FINDINGS: Single view of the chest obtained. Cardiac silhouette is moderately enlarged. Bilateral pleural effusions are present right greater than left. Endotracheal tube is satisfactorily positione d. Right internal jugular Port-A-Cath is present. IMPRESSION: Moderate cardiomegaly with bilateral pleural effusions unchanged from June 05. 2. The endotracheal tube satisfactorily positioned
[2022-06-06] MEDS ORDERED: SEROQUEL PO SCH (21:00)
[2022-06-07] MEDS ORDERED: LASIX TAB PO SCH (06:30)
== END 2022-06-06 12:34 | disposition short-term general hospital (02) | DRG 189 ==
LOC: ED 15:09 → MEDSURG A 17:45 → SCU 06-06 10:52
PROVIDERS: ADMIT Surgery; ATTEND Family Medicine
DX: J96.01 Acute respiratory failure with hypoxia; R60.9 Edema, unspecified; D72.819 Decreased white blood cell count, unspecified; Z79.899 Other long term (current) drug therapy; Z51.81 Encounter for therapeutic drug level monitoring; J96.11 Chronic respiratory failure with hypoxia; R06.02 Shortness of breath; J44.1 Chronic obstructive pulmonary disease with (acute) exacerbation; Z87.891 Personal history of nicotine dependence; Z99.81 Dependence on supplemental oxygen; I50.9 Heart failure, unspecified; Z20.822 Contact with and (suspected) exposure to COVID-19; M06.9 Rheumatoid arthritis, unspecified

== ENCOUNTER 2022-07-01 10:53 | Inpatient (IN) ==
[2022-07-01] MEDS ORDERED: DUONEB NEB ONE (11:09)
[2022-07-01] MEDS ORDERED: SOLU-MEDROL 125 MG IVP ONE (11:09)
--- NOTE | 2022-07-01 11:13 | ED.PDOC ---
General ED Provider: Dr. JIMMY MEADE MD Chief Complaint: Shortness of Air Stated Complaint: mild to mod short of breath today, no fever, hx sarcoid, home oxygen, no fever, no chest pain Time Seen by Provider: 07/01/22 11:02 Information Source: Patient Primary Care Provider: ODALIS BECKFORD MD Nursing and Triage Documentation Reviewed and Agree: Yes Does patient meet sepsis criteria?: No System Inflammatory Response Syndrome: Not Applicable Sepsis Protocol: For patient's 13 years and over: Temp is 96.8 and below OR 101 and greater Pulse >90 BPM Resp >20/minute Acutely Altered Mental Status Are patient's symptoms suggestive of a new infection, such as: -Pneumonia -Skin, Soft Tissue -Endocarditis -UTI -Bone, Joint Infection -Implantable Device -Acute Abdominal Infection -Wound Infection -Meningitis -Blood Stream Catheter Infection -Unknown Review of Systems Review Of Systems Constitutional: Denies Fever Eyes: Denies Vision change Ears, Nose, Mouth, Throat: Denies Throat pain Respiratory: Reports Cough, Short of air and Wheezing Cardiac: Denies Chest pain GI: Denies Abdominal pain or Vomiting : Denies Frequency Musculoskeletal: Denies Neck pain Skin: Denies Rash or Cyanosis Neurological: Denies Cognitive dysfunction All Other Systems: Other [facility] Medical History (Updated 07/01/22 @ 12:51 by JIMMY MEADE MD) Family History Mother Hypertension Diabetes FATHER Cancer Social History Smoking and tobacco status: Former smoker Tobacco: How many years used: 37 Quit status: not considering quitting Second hand smoke exposure: No Alcohol intake: never Counseling given: No Counseling provided: none Substance use type: does not use Counseling given: No Counseling provided: none Janice/sikh: NONE Special janice needs: No Agree to transfusion: Yes Adopted: No Caregiver/support person: No Foster care: No Household members: spouse and family Housing: house Marital status: M Lives independently: Yes Daycare: no daycare Number of children: 5 Number of grandchildren: 7 Highest education level completed: 10th grade Financial difficulty paying for basics: hard service: No long term: No Current occupational status: disabled Current occupational exposures/hazards: No Pets and animals: Yes (cats, dog) History of recent travel: No Do you think of yourself as: straight/heterosexual Current gender identity: female Seatbelt use: always Drives intoxicated or rides with intoxicated front end loader driver: No Surgical History Delivery by section H/O: hysterectomy History of esophageal hernia repair History of inguinal hernia repair Hx of cholecystectomy S/P repair of ligament of ankle Female Reproductive History Menstrual Hx Hysterectomy: Yes Hx Tubal Ligation: No Physical Exam Physical Exam Appearance: Reports Well-appearing Ill-appearing: None Pain Distress: None Eyes: Reports Conjunctiva clear ENT: Denies Rhinorrhea Neck: Supple Respiratory: Reports Airway patent and Wheezes Cardiovascular: Reports RRR GI/: Reports Soft and Nontender Musculoskeletal: Reports ROM intact and No edema Skin: Reports Warm and Dry Neurological: Reports Alert and Oriented Psychiatric: Reports Affect appropriate Interpretation Radiology Interpretation Radiology Interpretation By: Radiologist Exam Interpreted: CXR Xray Comments: bilateral pleural effusions EKG Interpretation Time of EKG #1: 12:49 Rate: Normal Rhythm: Sinus Interpretation: no stemi Critical Care Note Critical Care Note Total Critical Care Time (mins): 0 Course Course 07/01/22 11:28 07/01/22 11:28 Orders, Labs, Meds: Lab Review 07/01/22 07/01/22 11:28 11:40 WBC 1.59 L* RBC 3.16 L Hgb 8.6 L Hct 28.9 L MCV 91.5 MCH 27.2 MCHC 29.8 L RDW Coeff of Georgina 16.9 H Plt Count 148 Immature Gran % (Auto) 0.0 Neut % (Auto) 75.5 H Lymph % (Auto) 12.6 [place] % (Auto) 9.4 Eos % (Auto) 1.9 Baso % (Auto) 0.6 Neut # (Auto) 1.2 L Lymph # (Auto) 0.2 L [place] # (Auto) 0.2 L Eos # (Auto) 0.0 Baso # (Auto) 0.0 Immature Gran # (Auto) 0.0 Sodium 138.1 Potassium 3.55 Chloride 93.0 L Carbon Dioxide 41.4 H* Anion Gap 7.25 BUN 13.5 Creatinine 0.67 Estimated GFR (MDRD) 92.00 BUN/Creatinine Ratio 20.14 Glucose 136.0 H Lactic Acid 0.76 Calcium 9.02 Total Bilirubin 0.35 AST 16.4 ALT 11.8 Alkaline Phosphatase 87.6 Troponin I < 0.012 Total Protein 6.76 Albumin 3.97 Globulin 2.79 Albumin/Globulin Ratio 1.42 SARS CoV-2 RNA Rapid PAUL Negative Orders Category Date Time Status EKG-(ED ONLY) Stat CARDIO 07/01/22 11:09 Completed OXYGEN [ED APPLY O2] .ONCE EMERGENCY 07/01/22 11:09 Active BLOOD CULTURE Stat LAB 07/01/22 12:45 Ordered CBC W/ AUTO DIFF Stat LAB 07/01/22 11:28 Completed CMP [COMPREHENSIVE METABOLIC PANEL] Stat LAB 07/01/22 11:28 Completed LACTIC ACID Stat LAB 07/01/22 11:28 Completed SARS COV-2 RNA RAPID PAUL Stat LAB 07/01/22 11:40 Completed TROPONIN I Stat LAB 07/01/22 11:28 Completed 750 mg IV Once One MEDS 07/01/22 12:47 Ordered Levofloxacin/D5w [Levaquin 750 mg/150 ml D5w] 750 mg in 150 ml IV ONCE Ipratropium/Albuterol Neb [Duoneb] MEDS 07/01/22 11:09 Discontinued 3 ml NEB ONCE ONE Methylprednisolone Sod Succ/Pf [Solu-Medrol 125 mg] MEDS 07/01/22 11:09 Discontinued 125 mg IVP ONCE ONE Morphine Sulfate [Morphine 2 mg/ml Syringe] MEDS 07/01/22 12:45 Once 2 mg IVP ONCE ONE CHEST, 1V AP ONLY Stat RADS 07/01/22 11:09 Completed Medications Generic Name Dose Route Start Last Admin Trade Name Freq PRN Reason Stop Dose Admin Levofloxacin/Dextrose 750 mg in 150 mls @ 100 mls/hr 07/01/22 12:47 Levaquin 750 Mg/150 Ml D5w IV 07/01/22 14:16 ONCE ONE Discontinued Medications Generic Name Dose Route Start Last Admin Trade Name Freq PRN Reason Stop Dose Admin Albuterol/Ipratropium 3 ml 07/01/22 11:09 07/01/22 11:38 Ipratropium/Albuterol Vial.Neb NEB 07/01/22 11:10 3 ml ONCE ONE Administration Methylprednisolone Sodium Succinate 125 mg 07/01/22 11:09 07/01/22 11:24 Methylprednisolone Sod Succ/Pf 125 Mg/2 Ml Vial IVP 07/01/22 11:10 125 mg ONCE ONE Administration Morphine Sulfate 2 mg 07/01/22 12:45 Morphine Sulfate 2 Mg/Ml Syringe IVP 07/01/22 12:46 ONCE ONE Vital Signs: Temp Pulse Resp BP Pulse Ox 07/01/22 10:54 98.8 F 97 18 111/73 88 L Discharge Plan Discharge Patient Disposition: ADMITTED INPATIENT Discharge Problem: Leukopenia, Pleural effusion, Hypoxia, Sarcoidosis Prescriptions: No Action albuterol sulfate 2.5 mg/0.5 mL solution for nebulization 2.5 mg IH QID metoprolol succinate 25 mg tablet extended release 24 hr 25 mg PO QDAY Qty: 30 2RF (DME) OXYGEN CONCENTRATOR Misc See Rx Instructions .ROUTE Qty: 1 0RF Rx Instructions: portable concentrator. continuous 2-3L 02 (lifetime need) atorvastatin [Lipitor] 20 mg tablet 20 mg PO QDAY Qty: 30 6RF quetiapine [Seroquel] 400 mg tablet 600 mg PO DAILY Qty: 45 3RF furosemide [Lasix] 20 mg tablet 20 mg PO QAM Qty: 30 1RF albuterol sulfate 90 mcg/actuation HFA aerosol inhaler 2 puff inhalation Q4-6H PRN (Reason: shortness of breath or wheezing) Qty: 8.5 0RF oxycodone-acetaminophen 5-325 mg tablet 1 tab PO Q4HR PRN (Reason: Pain) Patient Comments: TAKE 1 TABLET BY MOUTH EVERY 4 HOURS NEEDED FOR PAIN leucovorin calcium 5 mg tablet 5 mg PO WEEKLY Patient Comments: TAKE 1 TABLET BY MOUTH ONCE WEEKLY cholecalciferol (vitamin D3) [Vitamin D3] 50 mcg (2,000 unit) tablet 2,000 unit PO WEEKLY methotrexate sodium [Methotrexate (Anti-Rheumatic)] 2.5 mg Tablet 12.5 mg PO FR pantoprazole [Protonix] 40 mg tablet,delayed release (DR/EC) 40 mg PO QDAY Qty: 30 0RF duloxetine 30 mg capsule,delayed release(DR/EC) See Rx Instructions .ROUTE .COMPLEX Qty: 60 0RF Dose Instruction: TAKE 1 CAPSULE BY MOUTH TWICE DAILY Rx Instructions: TAKE 1 CAPSULE BY MOUTH TWICE DAILY buspirone 5 mg tablet 5 mg PO BID budesonide-formoterol [Symbicort] 160-4.5 mcg/actuation HFA aerosol inhaler 2 puff inhalation BID 30 Days Qty: 10.2 3RF aspirin [Ecotrin Low Strength] 81 mg tablet,delayed release (DR/EC) 81 mg PO QDAY Qty: 30 2RF Did you review [place] ASSISTED LIVING EXECUTIVE DIRECTOR for ALL controlled substances?: Not Applicable ED Provider: JIMMY MEADE Condition: Stable Physician Progress Note: pt refused abg, full admit to hospitalist tele []
[2022-07-01 11:45] LABS: ALANINE AMINOTRANSFERASE 11.8 U/L (0-35); ALBUMIN 3.97 g/dL (3.5-5.0); ALKALINE PHOSPHATASE 87.6 U/L (38-126); ASPARTATE AMINO TRANSFERASE 16.4 U/L (14-36); BILIRUBIN,TOTAL 0.35 mg/dL (0.2-1.3); BLOOD UREA NITROGEN 13.5 mg/dL (7-17); CALCIUM 9.02 mg/dL (8.4-10.2); CREATININE 0.67 mg/dL (0.60-1.30); POTASSIUM 3.55 mmol/L (3.5-5.1); SODIUM 138.1 mmol/L (134.5-145); TOTAL PROTEIN 6.76 g/dL (6.3-8.2)
[2022-07-01 11:48] LABS: BASOPHILS % (AUTO) 0.6 % (0.0-3.0); EOSINOPHILS % (AUTO) 1.9 % (0.0-7.0); HEMATOCRIT 28.9 % (37.0-47.0); HEMOGLOBIN 8.6 g/dl (12.0-16.0); LYMPHOCYTES # (AUTO) 0.2 K/uL (0.60-3.4); LYMPHOCYTES % (AUTO) 12.6 (10.0-50.0); MEAN CORPUSCULAR HEMOGLOBIN 27.2 pg (27.0-31.0); MEAN CORPUSCULAR HGB CONC 29.8 (31.8-35.4); MEAN CORPUSCULAR VOLUME 91.5 fl (81.0-99.0); MONOCYTES # (AUTO) 0.2 K/uL (0.4-2.0); MONOCYTES % (AUTO) 9.4 (0-10); NEUTROPHILS # (AUTO) 1.2 K/ul (2.0-6.9); NEUTROPHILS % (AUTO) 75.5 % (42.2-75.2); PLATELET COUNT 148 10^3/uL (140-440); RDW COEFFICIENT OF VARIATION 16.9 % (11.6-14.8); RED BLOOD COUNT 3.16 10^6/ul (4.20-5.40)
[2022-07-01 11:54] LABS: WHITE BLOOD COUNT 1.59 K/ul (4.6-10.2)
[2022-07-01 11:58] LABS: CARBON DIOXIDE 41.4 mmol/L (22-30.0); TROPONIN I < 0.012 ng/ml (0.0000-0.120)
[2022-07-01 12:18] LABS: SARS COV-2 RNA RAPID NAAT NEGATIVE (NEGATIVE)
--- NOTE | 2022-07-01 12:37 | DI ---
EXAM: CHEST RADIOGRAPH TECHNIQUE: Single frontal chest radiograph. HISTORY: Shortness of breath. COMPARISON: 06/06/2022 FINDINGS: There are bilateral pleural effusions. These are stable from the previous study. There is cardiomegaly. Right-sided Gskjkg-D-Elrb catheter with tip in the SVC. The osseous structures are unremarkable. IMPRESSION: 1. Bilateral pleural effusions and cardiomegaly are stable.
[2022-07-01] MEDS ORDERED: MORPHINE 2 MG/ML SYRINGE IVP ONE ×2 (12:45→18:23)
[2022-07-01] MEDS ORDERED: LEVAQUIN 750 MG/150 ML D5W 750 MG/150 ML BAG IV ONE (12:47)
[2022-07-01] MEDS ORDERED: MORPHINE 2 MG/ML SYRINGE IVP PRN (12:51)
[2022-07-01] MEDS ORDERED: TYLENOL PO PRN (12:51)
[2022-07-01] MEDS ORDERED: VENTOLIN HFA (PER PUFF-WITH SPACER) IH PRN (12:56)
[2022-07-01] MEDS: SODIUM CHLORIDE 1,000 ML IV SCH (13:04)
[2022-07-01] MEDS: ALBUTEROL 0.083% NEB NEB SCH ×2 (14:42→19:45)
[2022-07-01 15:45] VITALS: BMI 26.9
[2022-07-01] MEDS ORDERED: SEROQUEL PO SCH (17:00)
[2022-07-01] MEDS: MORPHINE 2 MG/ML SYRINGE IVP PRN ×2 (17:10→22:02)
[2022-07-01] MEDS: BUSPAR PO SCH (20:09)
[2022-07-01] MEDS: SYMBICORT 160-4.5 MCG INHALER IH SCH (20:14)
--- NOTE | 2022-07-02 00:25 | CT ---
EXAM: CT ANGIOGRAM CHEST WITH INTRAVENOUS CONTRAST 07/01/2022. MULTI PLANAR REFORMATTED IMAGES OBTA INED. MIP IMAGES PROVIDED HISTORY: Shortness of a air. Elevated D-dimer COMPARISON: 07/01/2022, 01/12/2022 FINDINGS: The heart size is within normal limits. There is a moderate to large pericardial effusion . At the left posterior mediastinum on image 86 this measures 2.4 cm thickness. This is increased a s compared to 01/12/2022. There are no pulmonary arterial filling defects to suggest pulmonary embolus. Small left and moderate right-sided pleural effusions. Interlobular septal thickening likely due to pulmonary edema. Stable multifocal atelectasis and/or s carring. Patchy areas of bilateral ground-glass density may relate to edema and/or infectious/inflam matory pneumonitis. Bibasilar consolidation may represent atelectasis and/or pneumonia. Stable 6 mm right lobe nodule. This appears increased as compared to 04/19/2020. Follow-up CT chest recommended in approximately 6 months. IMPRESSION: 1. No pulmonary embolus 2. Qyksgujz-if-xwnyu pericardial effusion has increased as compared to the prior CT. 3. Small left and moderate right-sided pleural effusions 5. Diffuse pulmonary edema. 6. Multifocal atelectasis, scarring and/or infectious inflammatory pneumonitis 7. Bibasilar consolidation may represent atelectasis and/or pneumonia. 8. 6 mm right upper lobe nodule. This is increased as compared to remote study performed 04/19/2020 . Follow-up CT of the chest recommended in approximately [address] scans are performed using dose optimization techniques as appropriate to the performed exam an d include at least one of the following: Automated exposure control, adjustment of the mA and/or kV according t o size, and the use of iterative reconstruction technique.
[2022-07-02] MEDS: MORPHINE 2 MG/ML SYRINGE IVP PRN ×3 (02:53→12:22)
[2022-07-02 03:20] LABS: HEMATOCRIT 29.9 % (37.0-47.0); HEMOGLOBIN 8.9 g/dl (12.0-16.0); IMMATURE GRANULOCYTE % (AUTO) 0.4 % (0.0-5.0); LYMPHOCYTES # (AUTO) 0.1 K/uL (0.60-3.4); LYMPHOCYTES % (AUTO) 3.2 (10.0-50.0); MEAN CORPUSCULAR HEMOGLOBIN 27.7 pg (27.0-31.0); MEAN CORPUSCULAR HGB CONC 29.8 (31.8-35.4); MEAN CORPUSCULAR VOLUME 93.1 fl (81.0-99.0); MONOCYTES # (AUTO) 0.1 K/uL (0.4-2.0); MONOCYTES % (AUTO) 5.6 (0-10); NEUTROPHILS # (AUTO) 2.3 K/ul (2.0-6.9); NEUTROPHILS % (AUTO) 90.8 % (42.2-75.2); PLATELET COUNT 172 10^3/uL (140-440); RED BLOOD COUNT 3.21 10^6/ul (4.20-5.40); WHITE BLOOD COUNT 2.48 K/ul (4.6-10.2)
[2022-07-02 03:32] LABS: ALANINE AMINOTRANSFERASE 13.8 U/L (0-35); ALBUMIN 3.93 g/dL (3.5-5.0); ALKALINE PHOSPHATASE 84.2 U/L (38-126); BILIRUBIN,TOTAL 0.31 mg/dL (0.2-1.3); BLOOD UREA NITROGEN 14.8 mg/dL (7-17); CALCIUM 9.09 mg/dL (8.4-10.2); CHLORIDE 96.2 mmol/L (98-107); CREATININE 0.68 mg/dL (0.60-1.30); GLUCOSE 147.3 mg/dL (74-106); SODIUM 140.8 mmol/L (134.5-145); TOTAL PROTEIN 6.84 g/dL (6.3-8.2)
[2022-07-02 03:42] LABS: CARBON DIOXIDE 42.1 mmol/L (22-30.0)
[2022-07-02 03:44] LABS: TROPONIN I < 0.012 ng/ml (0.0000-0.120)
[2022-07-02] MEDS: SODIUM CHLORIDE 1,000 ML IV SCH (03:51)
[2022-07-02] MEDS: ALBUTEROL 0.083% NEB NEB SCH ×2 (04:45→10:35)
[2022-07-02] MEDS ORDERED: LASIX TAB PO SCH (06:30)
[2022-07-02] MEDS ORDERED: PROTONIX PO SCH (06:30)
[2022-07-02] MEDS: BUSPAR PO SCH (08:17)
[2022-07-02] MEDS: SYMBICORT 160-4.5 MCG INHALER IH SCH (08:18)
[2022-07-02] MEDS ORDERED: ASPIRIN EC PO SCH (08:30)
[2022-07-02] MEDS ORDERED: SEROQUEL PO SCH (09:00)
[2022-07-02] MEDS ORDERED: TOPROL XL PO SCH (09:00)
[2022-07-02] MEDS ORDERED: LEVAQUIN 750 MG/150 ML D5W 750 MG/150 ML BAG IV SCH (09:00)
[2022-07-02] MEDS ORDERED: LIPITOR PO SCH (09:00)
[2022-07-02 10:06] VITALS: BP 104/61; TEMP 97.6
[2022-07-02] MEDS ORDERED: LASIX IVP ONE (10:18)
[2022-07-02] MEDS ORDERED: SOLU-MEDROL 125 MG IVP ONE (10:18)
--- NOTE | 2022-07-02 10:42 | PCM.PROG ---
Date Seen by Provider: 07/02/22 Time Seen by Provider: 10:00 Subjective: Patient complains of bilateral chest pain with cough. She also complains of dyspnea at rest. Objective: Vitals: T=97.6 F, P=96, R=18, CP=786/61, SPO2=96 Patient appears chronically and acutely ill. She is tachypneic and using accessory respiratory muscles. Pursed lip breathing. HEENT: [] Neck: [] Lungs: [] BS decreased bilaterally. Bilateral expiratory wheezes. CVS: []RRR. Mild to moderate peripheral edema. Abdomen: [] Extremities: [] Neurological: [] Skin: [] Lab/Tests/Diagnostic Imaging: [] (1) Chronic respiratory failure with hypoxia, on home oxygen therapy: Status: Acute Code(s): J96.11 - Chronic respiratory failure with hypoxia; Z99.81 - Dependence on supplemental oxygen SNOMED Code(s): 910758886 (2) COPD exacerbation: Status: Acute Code(s): J44.1 - Chronic obstructive pulmonary disease with (acute) exacerbation SNOMED Code(s): 257847567 (3) Bilateral pleural effusion: Status: Acute Code(s): J90 - Pleural effusion, not elsewhere classified SNOMED Code(s): 035168760 (4) Diastolic heart failure: Status: Acute Code(s): I50.30 - Unspecified diastolic (congestive) heart failure SNOMED Code(s): 552860151 (5) Sarcoidosis: Status: Acute Code(s): D86.9 - Sarcoidosis, unspecified SNOMED Code(s): 36923069 (6) Leukopenia: Status: Acute Code(s): D72.819 - Decreased white blood cell count, unspecified SNOMED Code(s): 09122549 (7) Immunosuppression due to drug therapy: Status: Acute Code(s): D84.821 - Immunodeficiency due to drugs; Z79.899 - Other long term care administrator (current) drug therapy SNOMED Code(s): 81596686 Plan: IV steroids. Increase frequency of duonebs. IV lasix. Transfer to [facility]. Will check ABGs.
[2022-07-02 11:15] LABS: ABG O2 HGB 94.2 % (95-100); ABG PH 7.42 (7.35-7.45); BEecf 24.1 (-2.0-3.0); COHb 2.7 (0.5-1.5); HCO3 48.6 (21-28); MetHb 0.6 (0-1.5); TCO2 50.9 (19-24); sO2 95.3 % (94-98); tHb 9.3 g/dl (11.7-17.4)
--- NOTE | 2022-07-02 12:36 | PCM.DC ---
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 She is alert.) Ill-appearing: Moderate Pain Distress: Mild Eyes: Conjunctiva clear ENT: Nose normal and Oropharynx normal Neck: Supple Respiratory: Airway patent, Breath sounds equal, Breath sounds diminished and Wheezes Cardiovascular: RRR, No rub, No murmur and Other (mild to moderate peripheral edema) GI/: Soft, Nontender, No masses, Bowel sounds normal and No Organomegaly Musculoskeletal: No calf tenderness Skin: Warm, Dry and Normal color Neurological: Alert and Oriented Psychiatric: Affect appropriate and Mood appropriate (1) Chronic respiratory failure with hypoxia, on home oxygen therapy: Status: Acute Code(s): J96.11 - Chronic respiratory failure with hypoxia; Z99.81 - Dependence on supplemental oxygen SNOMED Code(s): 207048324 (2) COPD exacerbation: Status: Acute Code(s): J44.1 - Chronic obstructive pulmonary disease with (acute) exacerbation SNOMED Code(s): 727312559 (3) Bilateral pleural effusion: Status: Acute Code(s): J90 - Pleural effusion, not elsewhere classified SNOMED Code(s): 330340735 (4) Diastolic heart failure: Status: Acute Code(s): I50.30 - Unspecified diastolic (congestive) heart failure SNOMED Code(s): 859788465 (5) Sarcoidosis: Status: Acute Code(s): D86.9 - Sarcoidosis, unspecified SNOMED Code(s): 64199941 (6) Leukopenia: Status: Acute Code(s): D72.819 - Decreased white blood cell count, unspecified SNOMED Code(s): 76290941 (7) Immunosuppression due to drug therapy: Status: Acute Code(s): D84.821 - Immunodeficiency due to drugs; Z79.899 - Other fpc (current) drug therapy SNOMED Code(s): 82279778 Reason for Hospitalization: acute respiratory failure Prognosis/Condition at Discharge: Condition at transfer was serious Discharge Disposition: Transfer ([place], [place]) Hospital Course: Patient admitted with acute exacerbation of COPD. She has chronic respiratory failure. Patient also had leukopenia, bilateral pleural effusions and worsening heart failure. It was elected to transfer her as her pulmonary status had declined further since admission. Plan: Dr Gill, hospitalist, at [facility] is the accepting physician.
[2022-07-02] MEDS ORDERED: ALBUTEROL 0.083% NEB NEB SCH (14:00)
[2022-07-08] MEDS ORDERED: LEUCOVORIN CALCIUM 5 MG PO SCH (09:00)
[2022-07-08] MEDS ORDERED: VITAMIN D PO SCH (09:00)
== END 2022-07-02 13:43 | disposition short-term general hospital (02) | DRG 189 ==
LOC: ED 10:53 → MEDSURG A 13:27
PROVIDERS: ADMIT Emergency Medicine Emergency Medical Services; ATTEND Surgery
DX: Z79.899 Other long term (current) drug therapy; J96.11 Chronic respiratory failure with hypoxia; J44.1 Chronic obstructive pulmonary disease with (acute) exacerbation; Z79.620 Long term (current) use of immunosuppressive biologic; Z20.822 Contact with and (suspected) exposure to COVID-19; Z51.81 Encounter for therapeutic drug level monitoring; J90 Pleural effusion, not elsewhere classified; D72.819 Decreased white blood cell count, unspecified; J96.21 Acute and chronic respiratory failure with hypoxia; Z79.82 Long term (current) use of aspirin; Z87.891 Personal history of nicotine dependence; Z99.81 Dependence on supplemental oxygen; I50.30 Unspecified diastolic (congestive) heart failure

== ENCOUNTER 2022-10-10 09:44 | Observation (INO) ==
[2022-10-10] MEDS ORDERED: SOLU-MEDROL 125 MG IVP ONE (09:57)
[2022-10-10] MEDS ORDERED: ALBUTEROL 0.083% NEB NEB STA (09:57)
[2022-10-10] MEDS ORDERED: DUONEB NEB ONE (09:57)
--- NOTE | 2022-10-10 10:03 | ED.PDOC ---
General ED Provider: Dr. JUNIOR MURRY MD Chief Complaint: Shortness of Air Stated Complaint: Shortness of breath Time Seen by Provider: 10/10/22 10:03 Mode of Arrival: Walk-In Information Source: Patient Primary Care Provider: ODALIS BECKFROD MD Nursing and Triage Documentation Reviewed and Agree: Yes Does patient meet sepsis criteria?: No System Inflammatory Response Syndrome: Not Applicable Sepsis Protocol: For patient's 13 years and over: Temp is 96.8 and below OR 101 and greater Pulse >90 BPM Resp >20/minute Acutely Altered Mental Status Are patient's symptoms suggestive of a new infection, such as: -Pneumonia -Skin, Soft Tissue -Endocarditis -UTI -Bone, Joint Infection -Implantable Device -Acute Abdominal Infection -Wound Infection -Meningitis -Blood Stream Catheter Infection -Unknown Respiratory Complaint Exam Shortness of Air Complaint/Exam Onset/Duration: 2 days Symptoms Are: Still present Timing: Constant Initial Severity: Moderate Current Severity: Moderate Character: Reports Dyspnea at rest Aggravating: Reports None Alleviating: Reports None Associated Signs and Symptoms: Reports Cough, Wheezing and Chest pain with cough; Denies Fever, Chills or Diaphoresis Review of Systems Review Of Systems Constitutional: Reports Weakness Respiratory: Reports Cough, Shortness of Breath and Wheezing All Other Systems: Reviewed and Negative [facility] Medical History Anxiety F41.9 - Anxiety disorder, unspecified (ICD-10) Arthritis, rheumatoid M06.9 - Rheumatoid arthritis, unspecified (ICD-10) Atherosclerosis I70.90 - Unspecified atherosclerosis (ICD-10) 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 - Disease of blood and blood-forming organs, unspecified (ICD-10) Chronic respiratory failure with hypoxia, on home oxygen therapy J96.11 - Chronic respiratory failure with hypoxia (ICD-10) Z99.81 - Dependence on supplemental oxygen (ICD-10) Diastolic heart failure I50.30 - Unspecified diastolic (congestive) heart failure (ICD-10) Encounter for insertion of venous access port Z45.2 - Encounter for adjustment and management of vascular access device (ICD-10) Enlarged liver R16.0 - Hepatomegaly, not elsewhere classified (ICD-10) History of intussusception Z87.19 - Personal history of other diseases of the digestive system (ICD-10) Leukopenia D72.819 - Decreased white blood cell count, unspecified (ICD-10) Respiratory distress R06.00 - Dyspnea, unspecified (ICD-10) Sarcoidosis D86.9 - Sarcoidosis, unspecified (ICD-10) Splenomegaly R16.1 - Splenomegaly, not elsewhere classified (ICD-10) Takotsubo cardiomyopathy I51.81 - Takotsubo syndrome (ICD-10) 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, unspecified eye, stage unspecified (ICD-10) 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) Family History Mother Hypertension Diabetes FATHER Cancer Social History (Updated 10/10/22 @ 15:08 by MATT WEST RN) Smoking and tobacco status: Current every day smoker Tobacco type: cigarettes Tobacco: How many years used: 37 Quit status: not considering quitting Second hand smoke exposure: No Alcohol intake: never Counseling given: No Counseling provided: none Substance use type: does not use Counseling given: No Counseling provided: none Janice/anabaptism: NONE Special janice needs: No Agree to transfusion: Yes Adopted: No Caregiver/support person: No Foster care: No Household members: spouse and family Housing: house Marital status: M Lives independently: Yes Daycare: no daycare Number of children: 5 Number of grandchildren: 7 Highest education level completed: 10th grade Financial difficulty paying for basics: hard service: No correction: No Current occupational status: disabled Current occupational exposures/hazards: No Pets and animals: Yes (cats, dog) History of recent travel: No Do you think of yourself as: straight/heterosexual Current gender identity: female Seatbelt use: always Drives 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 Surgical History Delivery by section H/O: hysterectomy Z90.710 - Acquired absence of both cervix and uterus (ICD-10) History of esophageal hernia repair Z98.890 - Other specified postprocedural states (ICD-10) Z87.19 - Personal history of other diseases of the digestive system (ICD-10) History of inguinal hernia repair Z98.890 - Other specified postprocedural states (ICD-10) Z87.19 - Personal history of other diseases of the digestive system (ICD-10) Hx of cholecystectomy Z98.89 - Other specified postprocedural states (ICD-10) S/P repair of ligament of ankle Z98.890 - Other specified postprocedural states (ICD-10) Female Reproductive History Menstrual Hx Hysterectomy: Yes Hx Tubal Ligation: No Physical Exam Physical Exam Appearance: Reports Well-appearing Ill-appearing: Not Applicable Pain Distress: Not Applicable Eyes: Reports KYREE and EOMI ENT: Reports Ears normal, Nose normal and Oropharynx normal Neck: Supple Respiratory: Reports Breath sounds diminished and Wheezes Cardiovascular: Reports RRR, Pulses normal, No rub and No murmur GI/: Reports Soft, Nontender and No masses Musculoskeletal: Reports Normal strength and ROM intact Skin: Reports Warm and Normal color Neurological: Reports Sensation intact and Motor intact Psychiatric: Reports Affect appropriate and Mood appropriate Interpretation EKG Interpretation EKG Interpretation By: ED Physician Time of EKG #1: 10:21 Rate: Normal Rhythm: Sinus Ectopy: None [place]: Right Interpretation: no signs of acute ischemia Critical Care Note Critical Care Note Total Critical Care Time (mins): 0 Course Course 10/10/22 10:16 10/10/22 10:16 Orders, Labs, Meds: Lab Review 10/10/22 10/10/22 10:16 13:00 WBC 3.20 L RBC 3.18 L Hgb 8.8 L Hct 30.0 L MCV 94.3 MCH 27.7 MCHC 29.3 L RDW Coeff of Georgina 19.0 H Plt Count 205 Neutrophils % (Manual) 80.0 H Lymphocytes % (Manual) 6.0 L Monocytes % (Manual) 14.0 H Anisocytosis Not present Puncture Site Rbrach Base Excess 12.2 H O2 Saturation 97.5 ABG pH 7.41 ABG pCO2 58.0 H ABG pO2 95.0 ABG HCO3 36.8 H ABG Total CO2 38.6 H Alexsander Test Na Hemoglobin 0.6 Oxyhemoglobin 94.5 L Carboxyhemoglobin 3.4 H Total Hemoglobin 9.1 L O2 Delivery Device Cannula Oxygen Liter Flow 3.00 Sodium 139.5 Potassium 4.18 Chloride 100.6 Carbon Dioxide 39.1 H Anion Gap 3.98 BUN 24.4 H Creatinine 0.82 Estimated GFR (MDRD) 73.00 BUN/Creatinine Ratio 29.75 Glucose 121.6 H Calcium 9.19 Iron 18.0 L TIBC 340 % Saturation 5 Ferritin 17.40 Total Bilirubin 0.22 AST 24.9 ALT 12.3 Alkaline Phosphatase 81.4 Troponin I < 0.012 NT-Pro-B Natriuret Pep 902 H Total Protein 6.57 Albumin 3.88 Globulin 2.69 Albumin/Globulin Ratio 1.44 Orders Category Date Time Status ADMIT OBSERVATION [PLACE PATIENT OBSERVATION] .TO ADMISSION 10/10/22 13:24 Active MEDSURG (MONITORED BED) ABG DRAW REQUEST Stat CARDIO 10/10/22 12:37 Completed EKG-(ED ONLY) Stat CARDIO 10/10/22 10:02 Completed NEBULIZER TREATMENT Routine CARDIO 10/10/22 13:31 Active NEBULIZER TREATMENT Stat CARDIO 10/10/22 09:57 Completed OXYGEN Routine CARDIO 10/10/22 13:28 Active ACTIVITY .Early Mobilization for VTE Prevention CARE 10/10/22 13:26 Active INTAKE & OUTPUT Q8HR CARE 10/10/22 13:26 Active TELEMETRY MONITORING TELE CARE 10/10/22 13:24 Active VITAL SIGNS Q4HR CARE 10/10/22 13:26 Active WEIGH PATIENT 0600 CARE 10/10/22 13:29 Active IV [ED IV/MEDIPORT/POWERPORT] .ONCE EMERGENCY 10/10/22 09:57 Active Monitor [ED CORRECTIONAL OFFICER CAPTAIN APPLIED] .ONCE EMERGENCY 10/10/22 09:57 Active ABG COOX Stat LAB 10/10/22 13:00 Completed CBC W/ AUTO DIFF DAILY@0600 LAB 10/11/22 06:00 Ordered CBC W/ AUTO DIFF DAILY@0600 LAB 10/12/22 06:00 Ordered CBC W/ AUTO DIFF Stat LAB 10/10/22 10:16 Completed CMP [COMPREHENSIVE METABOLIC PANEL] Stat LAB 10/10/22 10:16 Completed COMPREHENSIVE METABOLIC PANEL DAILY@0600 LAB 10/11/22 06:00 Ordered COMPREHENSIVE METABOLIC PANEL DAILY@0600 LAB 10/12/22 06:00 Ordered MANUAL DIFFERENTIAL Stat LAB 10/10/22 10:16 Completed TROPONIN I Stat LAB 10/10/22 10:16 Completed 0.9 % Sodium Chloride [Saline Flush] Meds 10/10/22 09:57 Active 1 syr IVF PRN PRN Albuterol Sulfate 0.083% Neb [Albuterol 0.083% Neb] Meds 10/10/22 09:57 Discontinued 2.5 mg NEB ONCE STA Albuterol Sulfate 0.083% Neb [Albuterol 0.083% Neb] Meds 10/10/22 13:31 Active 2.5 mg NEB RTQID PRN Clonidine HCl [Catapres] Meds 10/10/22 13:28 Discontinued 0.1 mg PO ONCE ONE Ipratropium/Albuterol Neb [Duoneb] Meds 10/10/22 09:57 Discontinued 3 ml NEB ONCE ONE Ipratropium/Albuterol Neb [Duoneb] Meds 10/10/22 18:00 Active 3 ml NEB RTQ6H Ketorolac Tromethamine [Toradol] Meds 10/10/22 10:53 Discontinued 15 mg IVP ONCE STA Levofloxacin/D5w [Levaquin 500 mg/100 ml D5w] Meds 10/10/22 11:54 Discontinued 500 mg in 100 ml IV ONCE Levofloxacin/D5w [Levaquin 750 mg/150 ml D5w] Meds 10/11/22 09:00 Active 750 mg in 150 ml IV DAILY Methylprednisolone Sod Succ/Pf [Solu-Medrol 125 mg] Meds 10/10/22 09:57 Dis continued 125 mg IVP ONCE ONE Methylprednisolone Sod Succ/Pf [Solu-Medrol 125 mg] Meds 10/10/22 14:00 Active 40 mg IVP Q8HR Morphine Sulfate [Morphine 2 mg/ml Syringe] Meds 10/10/22 11:22 Discontinued 1 mg IVP ONCE ONE CXR [CHEST, 1V AP ONLY] Stat RADS 10/10/22 09:57 Completed Medications Generic Name Dose Route Start Last Admin Trade Name Freq PRN Reason Stop Dose Admin Albuterol Sulfate 2.5 mg 10/10/22 13:31 Albuterol Sulfate 0.083% Vial.Neb NEB RTQID PRN SOB Albuterol/Ipratropium 3 ml 10/10/22 18:00 10/10/22 23:06 Ipratropium/Albuterol Vial.Neb NEB 3 ml RTQ6H EMRE Administration Aspirin 81 mg 10/11/22 09:00 Aspirin 81 Mg Tablet. PO DAILY EMRE Atorvastatin Calcium 20 mg 10/11/22 09:00 Atorvastatin Calcium 20 Mg Tablet PO DAILY EMRE Buspirone HCl 5 mg 07/23/23 18:00 10/10/22 20:10 Buspirone Hcl 10 Mg Tablet PO Not Given BID EMRE Cholecalciferol 2,000 unit 10/10/22 21:00 10/10/22 21:00 Cholecalciferol (Vitamin D3) 1,000 Unit (25 Mcg) Tablet PO 2,000 unit BEDTIME EMRE Administration Duloxetine HCl 30 mg 10/10/22 21:00 10/10/22 20:59 Duloxetine Hcl 30 Mg Capsule. PO 30 mg BID EMRE Administration Ferrous Sulfate 324 mg 10/10/22 21:00 10/10/22 21:00 Ferrous Sulfate 324 Mg Tablet. PO 324 mg BID EMRE Administration Furosemide 40 mg 10/10/22 15:30 10/11/22 03:20 Furosemide Inj 40 Mg/4 Ml Vial IVP 40 mg Q12H EMRE Administration Heparin Sodium (Beef Lung) 300 units 10/10/22 17:30 10/11/22 03:26 Heparin Sodium,Porcine 300 Units/3 Ml Syringe IVF 300 units PRN PRN Administration FLUSHING Levofloxacin/Dextrose 750 mg in 150 mls @ 100 mls/hr 10/11/22 09:00 Levaquin 750 Mg/150 Ml D5w IV 10/14/22 08:59 DAILY [facility] Methylprednisolone Sodium Succinate 40 mg 10/10/22 14:00 10/10/22 21:00 Methylprednisolone Sod Succ/Pf 125 Mg/2 Ml Vial IVP 40 mg Q8HR EMRE Administration Oxycodone/Acetaminophen 1 tab 10/10/22 15:55 10/11/22 01:52 Oxycodone/Acetaminophen 5/325 Mg Tablet PO 1 tab Q4H PRN Administration MODERATE PAIN Pantoprazole Sodium 40 mg 10/11/22 09:00 Pantoprazole Sodium 40 Mg Tablet. PO DAILY EMRE Quetiapine Fumarate 600 mg 10/10/22 18:00 10/10/22 18:24 Quetiapine Fumarate 100 Mg Tablet PO 600 mg DAILY EMRE Administration Sodium Chloride 1 syr 10/10/22 09:57 10/10/22 10:57 0.9% Sodium Chloride 10 Ml Disp.Syrin IVF 1 syr PRN PRN Administration To flush IV Discontinued Medications Generic Name Dose Route Start Last Admin Trade Name Freq PRN Reason Stop Dose Admin Albuterol Sulfate 2.5 mg 10/10/22 09:57 10/10/22 10:16 Albuterol Sulfate 0.083% Vial.[facility] 10/10/22 09:58 2.5 mg ONCE STA Administration Albuterol/Ipratropium 3 ml 10/10/22 09:57 10/10/22 10:30 Ipratropium/Albuterol Vial.[facility] 10/10/22 09:58 3 ml ONCE ONE Administration Clonidine 0.1 mg 10/10/22 13:28 10/10/22 13:37 Clonidine Hcl 0.1 Mg Tablet PO 10/10/22 13:29 Not Given ONCE ONE Levofloxacin/Dextrose 500 mg in 100 mls @ 100 mls/hr 10/10/22 11:54 10/10/22 12:18 Levaquin 500 Mg/100 Ml D5w IV 10/10/22 12:53 100 mls/hr ONCE ONE Administration Ketorolac Tromethamine 15 mg 10/10/22 10:53 10/10/22 10:56 Ketorolac Tromethamine 15 Mg/Ml Vial IVP 10/10/22 10:54 15 mg ONCE STA Administration Methylprednisolone Sodium Succinate 125 mg 10/10/22 09:57 10/10/22 10:27 Methylprednisolone Sod Succ/Pf 125 Mg/2 Ml Vial IVP 10/10/22 09:58 125 mg ONCE ONE Administration Morphine Sulfate 1 mg 10/10/22 11:22 10/10/22 11:27 Morphine Sulfate 2 Mg/Ml Syringe IVP 10/10/22 11:23 1 mg ONCE ONE Administration Vital Signs: Temp Pulse Resp BP Pulse Ox 10/10/22 09:53 98.6 F 108 H 25 H 144/81 H 95 52 yo female with PMH of COPD, sarcoidosis coming for SOB patient has been feeling short of breath for the past few days and her inhalers at home aren't helping. She was seen here on 10/05 treated with steroids and breathing treatment, and she was discharged to home with decadron oral tablets but her symptoms got worse again so she came back to the ER. No fever, Patient was given solumedrol, levaquin and breathing. case was discussed with hospitalist Pedro Barrios to admit the patient for further IV antibiotics and steroids, she accepted the patient to be admitted to her services. Discharge Plan Discharge Patient Disposition: PLACED OBSERVATION Did you review [place] PROGRAM ATTENDANT for ALL controlled substances?: Not Applicable ED Provider: JUNIOR MURRY Physician Progress Note: []
--- NOTE | 2022-10-10 10:13 | DI ---
EXAM: SINGLE, PORTABLE AP VIEW(S) CHEST. HISTORY: Shortness of breath. COMPARISON: 10/05/2022 TECHNIQUE: Single, portable AP view(s) of the chest. FINDINGS: Right-sided chest port with its tip over the cavoatrial junction. Prior postoperative boyle e. Lungs: The lung voulmes are normal.Stable bilateral pleural effusions, right greater left. There are no suspicious nodules. There is no pneumothorax. Cardiovascular: The heart size and pulmonary vasculature is normal.. The aorta is unremarkable. Gabi/Mediastinum: Normal. Osseous structures. Normal for age. IMPRESSION: Stable bilateral pleural effusions. No significant change in comparison to the prior study.
[2022-10-10 10:34] LABS: ALANINE AMINOTRANSFERASE 12.3 U/L (0-35); ALBUMIN 3.88 g/dL (3.5-5.0); ALKALINE PHOSPHATASE 81.4 U/L (38-126); ASPARTATE AMINO TRANSFERASE 24.9 U/L (14-36); BILIRUBIN,TOTAL 0.22 mg/dL (0.2-1.3); BLOOD UREA NITROGEN 24.4 mg/dL (7-17); CALCIUM 9.19 mg/dL (8.4-10.2); CARBON DIOXIDE 39.1 mmol/L (22-30.0); CHLORIDE 100.6 mmol/L (98-107); CREATININE 0.82 mg/dL (0.60-1.30); GLUCOSE 121.6 mg/dL (74-106); POTASSIUM 4.18 mmol/L (3.5-5.1); SODIUM 139.5 mmol/L (134.5-145); TOTAL PROTEIN 6.57 g/dL (6.3-8.2)
[2022-10-10] MEDS ORDERED: TORADOL IVP STA (10:53)
[2022-10-10 11:22] LABS: HEMOGLOBIN 8.8 g/dl (12.0-16.0); MEAN CORPUSCULAR HEMOGLOBIN 27.7 pg (27.0-31.0); MEAN CORPUSCULAR HGB CONC 29.3 (31.8-35.4); MEAN CORPUSCULAR VOLUME 94.3 fl (81.0-99.0); PLATELET COUNT 205 10^3/uL (140-440); RED BLOOD COUNT 3.18 10^6/ul (4.20-5.40)
[2022-10-10] MEDS ORDERED: MORPHINE 2 MG/ML SYRINGE IVP ONE (11:22)
[2022-10-10] MEDS ORDERED: LEVAQUIN 500 MG/100 ML D5W 500 MG/100 ML BAG IV ONE (11:54)
[2022-10-10 12:00] LABS: ANISOCYTOSIS NOT PRESENT (NOT PRESENT)
[2022-10-10 13:09] LABS: ABG O2 HGB 94.5 % (95-100); ABG PH 7.41 (7.35-7.45); BEecf 12.2 (-2.0-3.0); COHb 3.4 (0.5-1.5); HCO3 36.8 (21-28); MetHb 0.6 (0-1.5); TCO2 38.6 (19-24); sO2 97.5 % (94-98); tHb 9.1 g/dl (11.7-17.4)
[2022-10-10] MEDS ORDERED: CATAPRES PO ONE (13:28)
[2022-10-10] MEDS ORDERED: ALBUTEROL 0.083% NEB NEB PRN (13:31)
--- NOTE | 2022-10-10 14:42 | PCM ---
Date of Service Date Seen by Provider: 10/10/22 Time Seen by Provider: 14:25 Admit Day/Time Admission Date: 10/10/22 Reason for Admission Chief Complaint: COPD EXACERBATION Hospital Provider Hospital [facility] Primary [facility] Physician Primary Care Physician: ODALIS BECKFORD MD History of Present Illness History of Present Illness: 52 yo female with pmh of chronic respiratory failure, diastolic heart failure, and sarcoidosis presented to the ER with complaints of shortness of breath. At baseline, she wears 3L of O2 via NC at all times. She reports she has a non- invasive ventilator at home that she uses as needed. She has been in the ER multiple times over the last 2 weeks with similar complaint and sent home with steroids. She also completed a course of clindamycin for treatment of peridontal abscess. Patient states that her chest feels tight and full. Denies any fever, chills, body aches, chest pain, productive cough, N/V/D. Does report dry cough. Case Discussed With Case Discussed With: Patient's case was discussed with the ER Physicians, Dr. 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 - Disease of blood and blood-forming organs, unspecified (ICD-10) Chronic respiratory failure with hypoxia, on home oxygen therapy J96.11 - Chronic respiratory failure with hypoxia (ICD-10) Z99.81 - Dependence on supplemental oxygen (ICD-10) Diastolic heart failure I50.30 - Unspecified diastolic (congestive) heart failure (ICD-10) Encounter for insertion of venous access port Z45.2 - Encounter for adjustment and management of vascular access device (ICD-10) Enlarged liver R16.0 - Hepatomegaly, not elsewhere classified (ICD-10) History of intussusception Z87.19 - Personal history of other diseases of the digestive system (ICD-10) Leukopenia D72.819 - Decreased white blood cell count, unspecified (ICD-10) Respiratory distress R06.00 - Dyspnea, unspecified (ICD-10) Sarcoidosis D86.9 - Sarcoidosis, unspecified (ICD-10) Splenomegaly R16.1 - Splenomegaly, not elsewhere classified (ICD-10) Takotsubo cardiomyopathy I51.81 - Takotsubo syndrome (ICD-10) 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89 - Other specified postprocedural states (ICD-10) S/P repair of ligament of ankle Z98.890 - Other specified postprocedural states (ICD-10) Family History Mother Hypertension Diabetes FATHER Cancer Social History (Updated 10/10/22 @ 15:08 by MATT WEST RN) Smoking and tobacco status: Current every day smoker Tobacco type: cigarettes Tobacco: How many years used: 37 Quit status: not considering quitting Second hand smoke exposure: No Alcohol intake: never Counseling given: No Counseling provided: none Substance use type: does not use Counseling given: No Counseling provided: none Janice/yazdanism: NONE Special janice needs: No Agree to transfusion: Yes Adopted: No Caregiver/support person: No Foster care: No Household members: spouse and family Housing: house Marital status: M Lives independently: Yes Daycare: no daycare Number of children: 5 Number of grandchildren: 7 Highest education level completed: 10th grade Financial difficulty paying for basics: hard service: No assisted: No Current occupational status: disabled Current occupational exposures/hazards: No Pets and animals: Yes (cats, dog) History of recent travel: No Do you think of yourself as: straight/heterosexual Current gender identity: female Seatbelt use: always Drives intoxicated or rides with intoxicated route cdl driver: No Allergies Allergies Allergy/AdvReac Type Severity Reaction Status Date / Time Penicillins AdvReac Rash Verified 10/10/22 12:28 prednisone AdvReac Dizziness Verified 10/10/22 12:28 Sulfa (Sulfonamide AdvReac Rash Verified 10/10/22 12:28 Antibiotics) Current Medications Home Medications albuterol sulfate 2.5 mg/0.5 mL solution for nebulization 2.5 mg inhalation QID 10/29/19 [History Confirmed 10/10/22 Last Taken 10/10/22 08:00 2.5 mg] albuterol sulfate 90 mcg/actuation aerosol inhaler 2 puff inhalation Q4-6H PRN shortness of breath or wheezing #8.5 grams 04/09/20 [Rx Confirmed 10/10/22 Last Taken 10/10/22 08:00 2 puff] aspirin 81 mg tablet,delayed release (Ecotrin Low Strength) 81 mg PO QDAY #30 tabs 09/26/20 [Rx Confirmed 10/10/22 Last Taken 10/10/22 08:00 81 mg] leucovorin calcium 5 mg tablet 5 mg PO WEEKLY 10/14/20 [History Confirmed 10/10/22 Last Taken 10/09/22 08:00 5 mg] oxycodone-acetaminophen 5 mg-325 mg tablet 1 tab PO Q4HR PRN Pain 10/14/20 [History Confirmed 10/10/22 Last Taken 10/10/22 08:00 1 tab] metoprolol succinate 25 mg tablet,extended release 24 hr 25 mg PO QDAY #30 tabs 12/21/20 [Rx Confirmed 10/10/22 Last Taken 10/10/22 08:00 25 mg] OXYGENCONCENTRATOR (OXYGEN CONCENTRATOR) #1 ea 12/31/21 [Rx Confirmed 10/05/22 Last Taken Unknown] methotrexate sodium 2.5 mg tablet 12.5 mg PO FR 01/12/22 [History Confirmed 10/10/22 Last Taken 10/08/22 18:00] pantoprazole 40 mg tablet,delayed release (Protonix) 40 mg PO QDAY #30 tabs 01/22/22 [Rx Confirmed 10/10/22 Last Taken 10/10/22 08:00 40 mg] furosemide 20 mg tablet (Lasix) 20 mg PO QAM #30 tabs 05/19/22 [Rx Confirmed 10/10/22 Last Taken 10/10/22 08:00 20 mg] cholecalciferol (vitamin D3) 50 mcg (2,000 unit) tablet (Vitamin D3) 2,000 unit PO WEEKLY 06/05/22 [History Confirmed 10/10/22 Last Taken 10/03/22 18:00] budesonide-formoterol HFA 160 mcg-4.5 mcg/actuation aerosol inhaler (Symbicort) 2 puff inhalation BID 30 days #10.2 grams 06/16/22 [Rx Confirmed 10/10/22 Last Taken 10/10/22 08:00 2 puff] buspirone 5 mg tablet 5 mg PO BID 06/16/22 [History Confirmed 10/10/22 Last Jayden en 10/10/22 08:00 5 mg] duloxetine 30 mg capsule,delayed release See Rx Instructions .Route .COMPLEX #60 caps 07/15/22 [Rx Confirmed 10/10/22 Last Taken 10/10/22 08:00 30 mg] quetiapine 400 mg tablet (Seroquel) 600 mg PO DAILY #45 tabs 07/30/22 [Rx Confirmed 10/10/22 Last Taken 10/09/22 18:00 600 mg] atorvastatin 20 mg tablet (Lipitor) 20 mg PO QDAY #30 tabs 08/04/22 [Rx Confirmed 10/10/22 Last Taken 10/10/22 08:00 20 mg] metoclopramide HCl 10 mg tablet (Reglan) 10 mg PO Q6H PRN nausea and vomiting #30 tabs 09/11/22 [Rx Confirmed 10/10/22 Last Taken 10/07/22 08:00 10 mg] ondansetron 4 mg disintegrating tablet 4 mg PO Q8H PRN nausea and vomiting 10/10/22 [History Confirmed 10/10/22 Last Taken 10/05/22 18:00 4 mg] Home Albuterol Sulfate (Albuterol Sulfate 0.083% Vial.Neb) 2.5 mg NEB RTQID PRN PRN Reason: SOB Albuterol/Ipratropium (Ipratropium/Albuterol Vial.Neb) 3 ml NEB RTQ6H EMRE Furosemide (Furosemide Inj 40 Mg/4 Ml Vial) 40 mg IVP Q12H EMRE Levofloxacin/Dextrose (Levaquin 750 Mg/150 Ml D5w) 750 mg in 150 mls @ 100 mls/hr IV DAILY EMRE Stop: 10/14/22 08:59 Methylprednisolone Sodium Succinate (Methylprednisolone Sod Succ/Pf 125 Mg/2 Ml Vial) 40 mg IVP Q8HR [facility] Last Admin: 10/10/22 15:02 Dose: 40 mg Sodium Chloride (0.9% Sodium Chloride 10 Ml Disp.Syrin) 1 syr IVF PRN PRN PRN Reason: To flush IV Last Admin: 10/10/22 10:57 Dose: 1 syr Discontinued Medications Albuterol Sulfate (Albuterol Sulfate 0.083% Vial.Neb) 2.5 mg NEB ONCE STA Stop: 10/10/22 09:58 Last Admin: 10/10/22 10:16 Dose: 2.5 mg Albuterol/Ipratropium (Ipratropium/Albuterol Vial.Neb) 3 ml NEB ONCE ONE Stop: 10/10/22 09:58 Last Admin: 10/10/22 10:30 Dose: 3 ml Clonidine (Clonidine Hcl 0.1 Mg Tablet) 0.1 mg PO ONCE ONE Stop: 10/10/22 13:29 Last Admin: 10/10/22 13:37 Dose: Not Given Levofloxacin/Dextrose (Levaquin 500 Mg/100 Ml D5w) 500 mg in 100 mls @ 100 mls/hr IV ONCE ONE Stop: 10/10/22 12:53 Last Admin: 10/10/22 12:18 Dose: 100 mls/hr Ketorolac Tromethamine (Ketorolac Tromethamine 15 Mg/Ml Vial) 15 mg IVP ONCE STA Stop: 10/10/22 10:54 Last Admin: 10/10/22 10:56 Dose: 15 mg Methylprednisolone Sodium Succinate (Methylprednisolone Sod Succ/Pf 125 Mg/2 Ml Vial) 125 mg IVP ONCE ONE Stop: 10/10/22 09:58 Last Admin: 10/10/22 10:27 Dose: 125 mg Morphine Sulfate (Morphine Sulfate 2 Mg/Ml Syringe) 1 mg IVP ONCE ONE Stop: 10/10/22 11:23 Last Admin: 10/10/22 11:27 Dose: 1 mg Review of Systems Constitutional: Reports No symptoms Head: Reports Normocephalic Eyes: Reports No symptoms Ears: Reports No symptoms Nose: Reports No symptoms Mouth: Reports No symptoms Throat: Reports No symptoms Cardiovascular: Reports Chest Pressure (tightness/fullness) Respiratory: Reports Cough (dry) and Shortness of air Gastrointestinal: Reports No symptoms Genitourinary: Reports No Symptoms Musculoskeletal: Reports No symptoms Endocrine: Reports No symptoms Hematology: Reports No symptoms Immunology: Reports No symptoms Neurological: Reports No symptoms Psychiatric: Reports No symptoms Physical examination Most Recent Vital Signs: Most Recent Vital Signs Temperature 98.6 F 10/10/22 09:53 Temperature Source Oral 10/10/22 09:53 Pulse Rate 89 10/10/22 14:23 Respiratory Rate 18 10/10/22 14:23 Blood Pressure 123/70 10/10/22 14:23 O2 Sat by Pulse Oximetry 98 10/10/22 14:23 Oxygen Delivery Method Nasal Cannula 10/10/22 14:34 Oxygen Flow Rate 3 10/10/22 14:34 Height 5 ft 1 in 10/10/22 09:53 Weight 154 lb 5.177 oz 10/10/22 09:53 Telemetry Heart Rate 85 07/02/22 13:00 Telemetry SPO2 92 L 07/02/22 01:00 Appearance: Positive Alert and Oriented x3 and Ill-Appearing Skin: Positive Warm, Good Turgor and Good Color HEENT: Positive Normocephalic and PERRLA Neck: Positive Supple and Midline Trachea Chest/Lungs: Positive Symmetrical With Equal Breath Sounds, Wheezes (inspiratory and expiratory) and Good Air Movement all 4 Lung Shrestha Heart: Positive RRR and Pulses Normal GI/: Positive Soft, Nontender and Bowel Sounds Normal Musculoskeletal: Positive Not Examined Extremities: Positive Intact Peripheral Pulses, Stable Joints Without Laxity and Good ROM in All Joints Neurological: Positive Sensation Intact, Motor intact, Reflexes Intact, Alert, Oriented and Muscle Strength 5/5 in Upper and Lower Extremities Bilaterally Psychiatric: Positive Oriented x4, Appropriate Mood, Appropriate Affect, Intact Memory, Good Short-Term Recall, Good Long-Term Recall, Normal Judgement and Normal Insight Labs This Visit Labs This Visit: Labs This Visit 10/10/22 10/10/22 10:16 13:00 WBC 3.20 L RBC 3.18 L Hgb 8.8 L Hct 30.0 L MCV 94.3 MCH 27.7 MCHC 29.3 L RDW Coeff of Georgina 19.0 H Plt Count 205 Neutrophils % (Manual) 80.0 H Lymphocytes % (Manual) 6.0 L Monocytes % (Manual) 14.0 H Anisocytosis Not present Puncture Site Rbrach Base Excess 12.2 H O2 Saturation 97.5 ABG pH 7.41 ABG pCO2 58.0 H ABG pO2 95.0 ABG HCO3 36.8 H ABG Total CO2 38.6 H Alexsander Test Na Hemoglobin 0.6 Oxyhemoglobin 94.5 L Carboxyhemoglobin 3.4 H Total Hemoglobin 9.1 L O2 Delivery Device Cannula Oxygen Liter Flow 3.00 Sodium 139.5 Potassium 4.18 Chloride 100.6 Carbon Dioxide 39.1 H Anion Gap 3.98 BUN 24.4 H Creatinine 0.82 Estimated GFR (MDRD) 73.00 BUN/Creatinine Ratio 29.75 Glucose 121.6 H Calcium 9.19 Total Bilirubin 0.22 AST 24.9 ALT 12.3 Alkaline Phosphatase 81.4 Troponin I < 0.012 Total Protein 6.57 Albumin 3.88 Globulin 2.69 Albumin/Globulin Ratio 1.44 Imaging Imaging: EXAM: SINGLE, PORTABLE AP VIEW(S) CHEST. HISTORY: Shortness of breath. COMPARISON: 10/05/2022 TECHNIQUE: Single, portable AP view(s) of the chest. FINDINGS: Right-sided chest port with its tip over the cavoatrial junction. Prior postoperative change. Lungs: The lung voulmes are normal.Stable bilateral pleural effusions, right greater left. There are no suspicious nodules. There is no pneumothorax. Cardiovascular: The heart size and pulmonary vasculature is normal.. The aorta is unremarkable. Gabi/Mediastinum: Normal. Osseous structures. Normal for age. IMPRESSION: Stable bilateral pleural effusions. No significant change in comparison to the prior study. Review Statement Review Statement: I have independently reviewed and interpreted the labs/EKGs/imaging that were ordered by the ER provider. I have reviewed all outside records that are available currently in our EMR including imaging/notes/labs from previous visits . Plan Plan: 1. COPD Exacerbation - wears 3L continuously, wheezing throughout lung shrestha; levaquin started in ER and continued, steroids, nebs, telemetry 2. Chronic Respiratory Failure - at baseline, wears 3L continuously, uses non- invasive ventilator prn at home - may use while in hospital, see above 3. Diastolic Heart Failure/Takotsubo cardiomyopathy - chronic, bnp 902 compared to previous visit in 300s, starting lasix 40 mg Q12H, I&O, daily weight 4. Leukopenia - chronic, stable, monitor 5. Anemia - mild, no signs of bleeding, checking iron studies 6. Sarcoidosis - chronic, follows with Pulmonology at [facility] 7. Chronic pain - may continue home medications DVT Prophylaxis: Up with assistance Time Spent: Greater than 80 minutes spent with patient, 50% of the time spent with this patient was devoted to counseling and coordination of care. [facility]annin minutes spent discussing advance care planning. Smoking Cessation: 5 minutes spent discussing smoking cessation. Disposition: Admit to: Med/Surg Observation Full Code Discussed Plan of Care with Dr. Jose Elias Connors. Medications Medication Orders: Medications Ordered Category Date Time Status 0.9 % Sodium Chloride [Saline Flush] Meds 10/10/22 09:57 Active 1 syr IVF PRN PRN Albuterol Sulfate 0.083% Neb [Albuterol 0.083% Neb] Meds 10/10/22 13:31 Active 2.5 mg NEB RTQID PRN Ipratropium/Albuterol Neb [Duoneb] Meds 10/10/22 18:00 Active 3 ml NEB RTQ6H Levofloxacin/D5w [Levaquin 750 mg/150 ml D5w] Meds 10/11/22 09:00 Active 750 mg in 150 ml IV DAILY Methylprednisolone Sod Succ/Pf [Solu-Medrol 125 mg] Meds 10/10/22 14:00 Active 40 mg IVP Q8HR
[2022-10-10 14:58] VITALS: BMI 29.2
[2022-10-10] MEDS: SOLU-MEDROL 125 MG IVP SCH ×2 (15:02→21:00)
[2022-10-10] MEDS: LASIX IVP SCH (15:27)
[2022-10-10] MEDS: PERCOCET 5-325 PO PRN ×2 (16:43→20:59)
[2022-10-10 17:41] LABS: BILIRUBIN,URINE Negative (NEGATIVE); CLARITY,URINE Clear (CLEAR); COLOR,URINE Yellow (YELLOW); GLUCOSE, URINE (UA) Trace (NEGATIVE); KETONES,URINE Negative (NEGATIVE); LEUKOCYTE ESTERASE ,URINE Negative (NEGATIVE); NITRITE,URINE Negative (NEGATIVE); PROTEIN,URINE Negative (NEGATIVE); URINE, BLOOD Negative (NEGATIVE); UROBILINOGEN,URINE 0.2 (0.2)
[2022-10-10] MEDS: DUONEB NEB SCH ×2 (17:51→23:06)
[2022-10-10] MEDS ORDERED: SEROQUEL PO SCH (18:00)
[2022-10-10] MEDS: BUSPAR PO SCH ×2 (18:24→20:10)
[2022-10-10] MEDS: CYMBALTA PO SCH (20:59)
[2022-10-10] MEDS ORDERED: VITAMIN D PO SCH (21:00)
[2022-10-10] MEDS: FERROUS SULFATE PO SCH (21:00)
[2022-10-11] MEDS: PERCOCET 5-325 PO PRN ×2 (01:52→05:39)
[2022-10-11] MEDS: LASIX IVP SCH (03:20)
[2022-10-11 05:22] LABS: HEMATOCRIT 31.3 % (37.0-47.0); HEMOGLOBIN 9.4 g/dl (12.0-16.0); MEAN CORPUSCULAR HEMOGLOBIN 27.3 pg (27.0-31.0); PLATELET COUNT 218 10^3/uL (140-440); RDW COEFFICIENT OF VARIATION 18.5 % (11.6-14.8); RED BLOOD COUNT 3.44 10^6/ul (4.20-5.40); WHITE BLOOD COUNT 3.68 K/ul (4.6-10.2)
[2022-10-11] MEDS: SOLU-MEDROL 125 MG IVP SCH (05:27)
[2022-10-11] MEDS: DUONEB NEB SCH (05:33)
[2022-10-11 05:34] LABS: ALANINE AMINOTRANSFERASE 16.4 U/L (0-35); ALBUMIN 4.22 g/dL (3.5-5.0); ALKALINE PHOSPHATASE 74.1 U/L (38-126); ASPARTATE AMINO TRANSFERASE 27.5 U/L (14-36); BILIRUBIN,TOTAL 0.35 mg/dL (0.2-1.3); BLOOD UREA NITROGEN 28.6 mg/dL (7-17); CALCIUM 9.13 mg/dL (8.4-10.2); CARBON DIOXIDE 39.8 mmol/L (22-30.0); CHLORIDE 93.2 mmol/L (98-107); CREATININE 0.87 mg/dL (0.60-1.30); GLUCOSE 145.8 mg/dL (74-106); POTASSIUM 4.46 mmol/L (3.5-5.1); SODIUM 136.1 mmol/L (134.5-145); TOTAL PROTEIN 7.22 g/dL (6.3-8.2)
[2022-10-11 06:07] LABS: ANISOCYTOSIS NOT PRESENT (NOT PRESENT)
[2022-10-11] MEDS: BUSPAR PO SCH (08:49)
[2022-10-11] MEDS: CYMBALTA PO SCH (08:50)
[2022-10-11] MEDS: FERROUS SULFATE PO SCH (08:51)
[2022-10-11] MEDS ORDERED: ASPIRIN EC PO SCH (09:00)
[2022-10-11] MEDS ORDERED: PROTONIX PO SCH (09:00)
[2022-10-11] MEDS ORDERED: LIPITOR PO SCH (09:00)
[2022-10-11] MEDS ORDERED: LEVAQUIN 750 MG/150 ML D5W 750 MG/150 ML BAG IV SCH (09:00)
--- NOTE | 2022-10-11 10:56 | DCSUM ---
Admission Date Admission Date: 10/10/22 Discharge Date Discharge Date: 10/11/22 Admission Diagnosis Admission Diagnosis: 1. COPD Exacerbation Discharge Diagnosis Discharge Diagnosis: 1. COPD Exacerbation - improved 2. Chronic Respiratory Failure - at baseline, wears 3L 3. Diastolic Heart Failure/Takotsubo cardiomyopathy - chronic, stable 4. Leukopenia - chronic, stable, f/u outpatient 5. Iron deficiency Anemia - mild, no signs of bleeding 6. Sarcoidosis - chronic, follows with Pulmonology at [facility] 7. Chronic pain - may continue home medications Hospital Provider Hospital Provider: MORENA OVIEDO PA-C, [facility] Primary Care Physician Primary Care Physician: ODALIS BECKFORD MD Summary of History and Physical Summary of History and Physical: 52 yo female with pmh of chronic respiratory failure, diastolic heart failure, and sarcoidosis presented to the ER with complaints of shortness of breath. At baseline, she wears 3L of O2 via NC at all times. She reports she has a non- invasive ventilator at home that she uses as needed. She has been in the ER multiple times over the last 2 weeks with similar complaint and sent home with steroids. She also completed a course of clindamycin for treatment of peridontal abscess. Patient states that her chest feels tight and full. Denies any fever, chills, body aches, chest pain, productive cough, N/V/D. Does report dry cough. Hospital Course Subjective: Patient was treated with Levaquin, steroids, nebulizers. She was also given a couple doses of IV Lasix. On the following day 10/11 she is feeling at her baseline. She is requesting discharge. She is on her baseline oxygen requirement. She has mild bilateral wheezing which she states is baseline for her. She had an echo in May 2022 showing normal ejection fraction of 61 to 65%. She had grade 1 diastolic dysfunction at that time. She also had a pericardial effusion at that time but no cardiac tamponade. She states that she uses albuterol regularly at home. She is not on any chronic inhalers. She states she was started on Symbicort but it caused her to get thrush. We will try Spiriva as it is not a steroid. We will also discharge on steroid burst and Levaquin remainder. Follow-up with PCP. Patient agrees to plan of care. Of note she is chronically anemic. Iron is low. Recommended [id number] iron supplement. Appearance: Pleasant, No Apparent Distress, Alert and Other (chronically ill appearing) HEENT: MMM and Supple CVS: No Murmur and No Rubs Abdomen: Soft, Non-Tender and No Distention Respiratory: No Accessory Muscle Use Extremities: Other (trace edema diana lower ext. ) Vital Signs: Most Recent Vital Signs Temperature 96.4 F L 10/11/22 05:21 Temperature Source Temporal Artery Scan 10/11/22 05:21 Temperature Source Oral 10/10/22 09:53 Pulse Rate 85 10/11/22 05:21 Respiratory Rate 20 10/11/22 05:21 Blood Pressure 100/65 10/11/22 05:21 Blood Pressure Mean 76 10/11/22 05:21 Blood Pressure Left Arm 139/76 10/10/22 14:37 Blood Pressure Location Right Arm 10/11/22 05:21 Blood Pressure Position Supine 10/11/22 05:21 O2 Sat by Pulse Oximetry 97 10/11/22 10:00 Oxygen Delivery Method Nasal Cannula 10/11/22 10:00 Oxygen Flow Rate 3 10/11/22 10:00 Height 5 ft 1 in 10/10/22 21:31 Weight 153 lb 6.4 oz 10/11/22 05:21 Telemetry Type Remote Telemetry 10/11/22 07:00 Telemetry Monitoring Continues 10/11/22 07:00 Telemetry Heart Rate 72 10/11/22 07:00 Telemetry SPO2 97 10/10/22 14:45 EKG MT Interval 0.15 10/11/22 07:00 EKG QRS Interval 0.09 10/11/22 07:00 Telemetry Strip Reading NSR 10/11/22 07:00 Imaging: EXAM: SINGLE, PORTABLE AP VIEW(S) CHEST. HISTORY: Shortness of breath. COMPARISON: 10/05/2022 TECHNIQUE: Single, portable AP view(s) of the chest. FINDINGS: Right-sided chest port with its tip over the cavoatrial junction. Prior postoperative change. Lungs: The lung voulmes are normal.Stable bilateral pleural effusions, right greater left. There are no suspicious nodules. There is no pneumothorax. Cardiovascular: The heart size and pulmonary vasculature is normal.. The aorta is unremarkable. Gabi/Mediastinum: Normal. Osseous structures. Normal for age. IMPRESSION: Stable bilateral pleural effusions. No significant change in comparison to the prior study. Lab Results Last 24 Hours: 10/11/22 10/10/22 10/10/22 05:10 17:36 13:00 WBC 3.68 L RBC 3.44 L Hgb 9.4 L Hct 31.3 L MCV 91.0 MCH 27.3 MCHC 30.0 L RDW Coeff of Georgina 18.5 H Plt Count 218 Neutrophils % (Manual) 91.0 H Lymphocytes % (Manual) 9.0 L Monocytes % (Manual) Anisocytosis Not present Puncture Site Rbrach Base Excess 12.2 H O2 Saturation 97.5 ABG pH 7.41 ABG pCO2 58.0 H ABG pO2 95.0 ABG HCO3 36.8 H ABG Total CO2 38.6 H Alexsander Test Na Hemoglobin 0.6 Oxyhemoglobin 94.5 L Carboxyhemoglobin 3.4 H Total Hemoglobin 9.1 L O2 Delivery Device Cannula Oxygen Liter Flow 3.00 Sodium 136.1 Potassium 4.46 Chloride 93.2 L Carbon Dioxide 39.8 H Anion Gap 7.56 BUN 28.6 H Creatinine 0.87 Estimated GFR (MDRD) 68.00 BUN/Creatinine Ratio 32.87 Glucose 145.8 H Calcium 9.13 Iron TIBC % Saturation Ferritin Total Bilirubin 0.35 AST 27.5 ALT 16.4 Alkaline Phosphatase 74.1 NT-Pro-B Natriuret Pep Total Protein 7.22 Albumin 4.22 Globulin 3.00 Albumin/Globulin Ratio 1.40 Urine Color Yellow Urine Clarity Clear Urine pH 5.0 Ur Specific Fletcher 1.010 Urine Protein Negative Urine Glucose (UA) Trace H Urine Ketones Negative Urine Blood Negative Urine Nitrite Negative Urine Bilirubin Negative Urine Urobilinogen 0.2 Ur Leukocyte Esterase Negative 10/10/22 10:16 WBC 3.20 L RBC 3.18 L Hgb 8.8 L Hct 30.0 L MCV 94.3 MCH 27.7 MCHC 29.3 L RDW Coeff of Georgina 19.0 H Plt Count 205 Neutrophils % (Manual) 80.0 H Lymphocytes % (Manual) 6.0 L Monocytes % (Manual) 14.0 H Anisocytosis Not present Puncture Site Base Excess O2 Saturation ABG pH ABG pCO2 ABG pO2 ABG HCO3 ABG Total CO2 Alexsander Test Hemoglobin Oxyhemoglobin Carboxyhemoglobin Total Hemoglobin O2 Delivery Device Oxygen Liter Flow Sodium Potassium Chloride Carbon Dioxide Anion Gap BUN Creatinine Estimated GFR (MDRD) BUN/Creatinine Ratio Glucose Calcium Iron 18.0 L TIBC 340 % Saturation 5 Ferritin 17.40 Total Bilirubin AST ALT Alkaline Phosphatase NT-Pro-B Natriuret Pep 902 H Total Protein Albumin Globulin Albumin/Globulin Ratio Urine Color Urine Clarity Urine pH Ur Specific Fletcher Urine Protein Urine Glucose (UA) Urine Ketones Urine Blood Urine Nitrite Urine Bilirubin Urine Urobilinogen Ur Leukocyte Esterase Discharge Instructions Discharge Planning: Discharge Planning > 80 minutes Discussed plan of care with Dr. Meme Connors. Discharge Medications: Medications at Discharge (Home Meds & RX) albuterol sulfate 2.5 mg/0.5 mL solution for nebulization 2.5 mg inhalation QID 10/29/19 albuterol sulfate 90 mcg/actuation aerosol inhaler 2 puff inhalation Q4-6H PRN shortness of breath or wheezing #8.5 grams 04/09/20 aspirin 81 mg tablet,delayed release (Ecotrin Low Strength) 81 mg PO QDAY #30 tabs 09/26/20 leucovorin calcium 5 mg tablet 5 mg PO WEEKLY 10/14/20 oxycodone-acetaminophen 5 mg-325 mg tablet 1 tab PO Q4HR PRN Pain 10/14/20 OXYGENCONCENTRATOR (OXYGEN CONCENTRATOR) #1 ea 12/31/21 methotrexate sodium 2.5 mg tablet 12.5 mg PO FR 01/12/22 pantoprazole 40 mg tablet,delayed release (Protonix) 40 mg PO QDAY #30 tabs 01/22/22 cholecalciferol (vitamin D3) 50 mcg (2,000 unit) tablet (Vitamin D3) 2,000 unit PO .q pm 06/05/22 buspirone 5 mg tablet 5 mg PO BID 06/16/22 duloxetine 30 mg capsule,delayed release See Rx Instructions .Route .COMPLEX #60 caps 07/15/22 quetiapine 400 mg tablet (Seroquel) 600 mg PO DAILY #45 tabs 07/30/22 atorvastatin 20 mg tablet (Lipitor) 20 mg PO QDAY #30 tabs 08/04/22 metoclopramide HCl 10 mg tablet (Reglan) 10 mg PO Q6H PRN nausea and vomiting #30 tabs 09/11/22 dexamethasone 2 mg tablet 2 mg PO TID 10/10/22 furosemide 20 mg tablet (Lasix) 20 mg PO QAM PRN edema 10/10/22 ondansetron 4 mg disintegrating tablet 4 mg PO Q8H PRN nausea and vomiting 10/10/22 spironolactone 50 mg tablet 50 mg PO QAM 10/10/22 levofloxacin 500 mg tablet 500 mg PO DAILY 5 days #5 tabs 10/11/22 prednisone 20 mg tablet 20 mg PO BID 4 days #8 tabs 10/11/22 tiotropium bromide 2.5 mcg/actuation mist for inhalation (Spiriva Respimat) 2 inh inhalation DAILY COPD #4 grams 10/11/22 Discharge Plan Discharge Discharge Orders: Discharge Patient (ONCE); Ordered 10/11/22 Ordered By: MORENA OVIEDO Activity Restrictions/Additional Instructions: DISCHARGE TO HOME DX: COPD EXACERBATION DIET: HEART HEALTHY ACTIVITY: TOLERATED F/U WITH PCP SCHEDULED RECOMMEND OTC IRON SUPPLEMENT DAILY YOU HAVE A HOSPITAL FOLLOW UP WITH THE [facility] ON TuesdaySeptember AT 2:15PM. SHOULD YOU HAVE ANY QUESTIONS YOU CAN CONTACT THEIR OFFICE AT [phone]. Instructions: COPD (Chronic Obstructive Pulmonary Disease) (GEN) Patient Disposition: HOME SELF-CARE Prescriptions: New levofloxacin 500 mg tablet 500 mg PO DAILY 5 Days Qty: 5 0RF Spiriva Respimat 2.5 mcg/actuation mist 2 inh inhalation DAILY Qty: 4 0RF prednisone 20 mg tablet 20 mg PO BID 4 Days Qty: 8 0RF Continued albuterol sulfate 2.5 mg/0.5 mL solution for nebulization 2.5 mg IH QID (DME) OXYGEN CONCENTRATOR Misc See Rx Instructions .ROUTE Qty: 1 0RF Rx Instructions: portable concentrator. continuous 2-3L 02 (lifetime need) duloxetine 30 mg capsule,delayed release(DR/EC) See Rx Instructions .ROUTE .COMPLEX Qty: 60 2RF Dose Instruction: TAKE 1 CAPSULE BY MOUTH TWICE DAILY Rx Instructions: TAKE 1 CAPSULE BY MOUTH TWICE DAILY quetiapine [Seroquel] 400 mg tablet 600 mg PO DAILY Qty: 45 3RF atorvastatin [Lipitor] 20 mg tablet 20 mg PO QDAY Qty: 30 6RF albuterol sulfate 90 mcg/actuation HFA aerosol inhaler 2 puff inhalation Q4-6H PRN (Reason: shortness of breath or wheezing) Qty: 8.5 0RF oxycodone-acetaminophen 5-325 mg tablet 1 tab PO Q4HR PRN (Reason: Pain) Patient Comments: TAKE 1 TABLET BY MOUTH EVERY 4 HOURS NEEDED FOR PAIN leucovorin calcium 5 mg tablet 5 mg PO WEEKLY Patient Comments: TAKE 1 TABLET BY MOUTH ONCE WEEKLY cholecalciferol (vitamin D3) [Vitamin D3] 50 mcg (2,000 unit) tablet 2,000 unit PO .q pm metoclopramide HCl [Reglan] 10 mg tablet 10 mg PO Q6H PRN (Reason: nausea and vomiting) Qty: 30 0RF ondansetron 4 mg tablet,disintegrating 4 mg PO Q8H PRN (Reason: nausea and vomiting) spironolactone 50 mg tablet 50 mg PO QAM Patient Comments: TAKE 1 TABLET BY MOUTH EVERY DAY dexamethasone 2 mg tablet 2 mg PO TID Patient Comments: TAKE 1 TABLET BY MOUTH THREE TIMES DAILY furosemide [Lasix] 20 mg tablet 20 mg PO QAM PRN (Reason: edema) methotrexate sodium 2.5 mg Tablet 12.5 mg PO FR pantoprazole [Protonix] 40 mg tablet,delayed release (DR/EC) 40 mg PO QDAY Qty: 30 0RF buspirone 5 mg tablet 5 mg PO BID aspirin [Ecotrin Low Strength] 81 mg tablet,delayed release (DR/EC) 81 mg PO QDAY Qty: 30 2RF Did you review [place] [employer] for ALL controlled substances?: Not Applicable Discussed opioids are addictive and Narcan is available by prescription or from pharmacy.: No Condition: Stable
[2022-10-11 11:08] VITALS: BP 144/73; PULSE 96; RESP 19; TEMP 98.1
[2022-10-11] MEDS ORDERED: SEROQUEL PO SCH (18:00)
== END 2022-10-11 12:14 | disposition home or self-care (01) ==
LOC: MEDSURG B 09:44 → ED 09:44 → MEDSURG B 14:25
PROVIDERS: ADMIT Hospitalist; ATTEND Physician Assistant